=== PATIENT | female | born 1955 | race Caucasian/White ===

== ENCOUNTER 2017-07-19 19:56 | Emergency (ER) | payer OTHER, SELFPAY | END 2017-07-20 00:59 | disposition home or self-care (01) | PROVIDERS: Emergency Provider Emergency Medicine; PCP Family Medicine; Visit Provider Emergency Medicine | DX: R07.9 Chest pain, unspecified (principal) | CPT/HCPCS: 71010; 71045; 80053; 84484; 85025; 93005; 93010; 99058; 99285 ==

== ENCOUNTER → 2017-10-04 21:03 | Outpatient (CLI) | payer OTHER, SELFPAY ==
--- NOTE | 2017-10-04 21:07 | DI.RAD.S_ITS ---
PROCEDURE: XR CHEST 2V INDICATIONS: query aspiration pneumonia TECHNIQUE: 2 views of the chest were acquired. COMPARISON: None. FINDINGS: Surgical changes and devices: None. Lungs and pleura: No pleural effusions or pneumothorax. Lungs are clear. Mediastinum: Mediastinal contours are normal. Heart size is normal. Bones and chest wall: No suspicious bony abnormalities. Soft tissues appear unremarkable. IMPRESSION: No acute disease. Dictated by: Shaji Ram M.D. on 10/04/2017 at 21:46 Approved by: Shaji Ram M.D. on 10/04/2017 at 21:47
== END ==
PROVIDERS: Family Provider Family Medicine; PCP Family Medicine; Visit Provider Physician Assistant
DX: R06.89 Other abnormalities of breathing (principal)
CPT/HCPCS: 71046

== ENCOUNTER → 2017-10-18 09:49 | Outpatient (CLI) | payer OTHER, SELFPAY ==
[2017-10-18 12:24] LABS: BUN Creatinine Ratio 25.7 (6-22); Blood Urea Nitrogen 18 mg/dL (7-17); Estimated Glomerular Filt Rate > 60.0 mL/min (>60)
== END ==
PROVIDERS: PCP Family Medicine; Visit Provider Internal Medicine
DX: R93.5 Abnormal findings on diagnostic imaging of other abdominal regions, including retroperitoneum (principal); K76.0 Fatty (change of) liver, not elsewhere classified
CPT/HCPCS: 36415; 82565; 84520

== ENCOUNTER → 2017-10-21 06:32 | Outpatient (CLI) | payer OTHER, SELFPAY ==
--- NOTE | 2017-10-21 | DI.MRI.S_ITS ---
PROCEDURE: MR ABDOMEN WO/W CON INDICATIONS: FATTY LIVER TECHNIQUE: Coronal HASTE, axial 2D FLASH in- and yiz-fo-rzvrs; axial breath-hold T2 FSE. Dynamic axial VIBE during the administration of contrast; post-contrast coronal VIBE or 2D FLASH with fat saturation from the hepatic dome to the iliac crests. Optional diffusion weighted imaging and ADC may be performed. COMPARISON: [facility], US, ABDOMEN COMPLETE, 07/03/2016, 7:14. [facility], CT, ABDOMEN/PELVIS WITH CONTRAST, 07/17/2017, 11:10. FINDINGS: Image quality: Excellent. Lung bases: No basal pleural effusions. Heart size is normal. Solid organs: Liver is normal in size with fatty infiltration. Multiple hepatic cysts are identified in the left and right lobes. In the anterolateral dome of the liver, corresponding to prior CT findings is a 1 cm sized area of enhancement with central low signal that progressively enhances, nearly filling in on delayed imaging. A similar small focus of progressive enhancement is present in the lateral aspect of the right lobe of liver, again corresponding to CT findings. A third area of similar findings as present in the dome of the liver court officer medially, just anterior to the inferior vena cava. None of the lesions show evidence of washout. Gallbladder appears normal. Biliary system is non dilated. Pancreas is normal in morphology. Spleen is normal in size and enhancement. No adrenal nodules. Both kidneys demonstrate normal size and enhancement, without hydronephrosis. Nodes and vessels: No retroperitoneal or mesenteric adenopathy by size criteria. Aorta and inferior vena cava are normal in size. Bowel and peritoneum: Unenhanced bowel loops are normal in caliber. No free fluid. Bones and soft tissues: No ventral hernias. Bone marrow is normal in overall signal. IMPRESSION: 1. Fatty infiltration of the liver. Multiple hepatic cysts redemonstrated. 2. 3 areas of abnormal enhancement seen in the periphery of the liver with characteristics most consistent with cavernous hemangiomas. No washout identified. Focused hepatic ultrasound recommended to determine if these are visible although not seen on previous abdomen ultrasound. If not, a one year followup CT abdomen with liver protocol is recommended. Dictated by: Art Howell M.D. on 10/21/2017 at 16:21 Approved by: Art Howell M.D. on 10/21/2017 at 16:40
== END ==
PROVIDERS: Family Provider Family Medicine; PCP Family Medicine; Visit Provider Surgery
DX: K76.0 Fatty (change of) liver, not elsewhere classified (principal); K76.89 Other specified diseases of liver
CPT/HCPCS: 74183; A9579

== ENCOUNTER → 2017-12-09 14:11 | Outpatient (CLI) | payer OTHER, SELFPAY ==
--- NOTE | 2017-12-09 | DI.MG.S_ITS ---
BILATERAL DIGITAL SCREENING MAMMOGRAM 3D/2D WITH CAD: 12/09/2017 CLINICAL: Routine screening. Comparison is made to exams dated: 11/01/2016 mammogram, 10/04/2015 mammogram, and 10/28/2014 mammogram - [facility]. There are scattered fibroglandular elements in both breasts. Current study was also evaluated with a Computer Aided Detection (CAD) system. No significant masses, calcifications, or other findings are seen in either breast. There has been no significant interval change. IMPRESSION: NEGATIVE There is no mammographic evidence of malignancy. A 1 year screening mammogram is recommended. This exam was interpreted at Station ID: [id number]. NOTE: For mammograms, a report in lay terms will be sent to the patient. Approximately 15% of breast malignancies will not be visualized mammographically. In the management of a palpable breast mass, a negative mammogram must not discourage biopsy of a clinically suspicious lesion. Electronically Signed By: Cary reyes/anthony:12/09/2017 16:36:32 letter sent: Normal Exam ACR BI-RADS Category 1: Negative [id number]
== END ==
PROVIDERS: Family Provider Family Medicine; PCP Family Medicine; Visit Provider Family Medicine
DX: Z12.31 Encounter for screening mammogram for malignant neoplasm of breast (principal)
CPT/HCPCS: 77063; 77067

== ENCOUNTER → 2018-03-21 06:57 | Outpatient (CLI) | payer OTHER, SELFPAY ==
[2018-03-21 08:01] LABS: Alanine Aminotransferase 53 IU/L (9-52); Albumin 4.4 g/dL (3.5-5.0); Albumin Globulin Ratio 1.4 (1.0-2.8); Alkaline Phosphatase 91 U/L (38-126); Aspartate Aminotransferase 29 IU/L (14-36); Bilirubin Total 0.7 mg/dL (0.2-1.3); Blood Urea Nitrogen 16 mg/dL (7-17); Calcium 9.2 mg/dL (8.4-10.2); Carbon Dioxide 29 mmol/L (22-32); Chloride 105 mmol/L (98-107); Cholesterol 206 mg/dL (140-199); Estimated Glomerular Filt Rate > 60.0 mL/min (>60); Globulin 3.1 g/dL (1.7-4.1); Glucose 107 mg/dL (80-110); HDL Cholesterol 36 mg/dL (40-60); HEMOLYSIS < 15 (0-50); LDL Cholesterol Calculated 133 mg/dL (<100); Potassium 4.3 mmol/L (3.4-5.1); Sodium 144 mmol/L (137-145); Total Protein 7.5 g/dL (6.3-8.2); Triglycerides 185 mg/dL (35-150)
[2018-03-21 08:42] LABS: Hemoglobin A1C% w Est Avg Glu 5.6 % (4.0-6.0)
== END ==
PROVIDERS: PCP Family Medicine; Visit Provider Family Medicine
DX: R73.9 Hyperglycemia, unspecified (principal); Z51.81 Encounter for therapeutic drug level monitoring
CPT/HCPCS: 36415; 80053; 80061; 83036

== ENCOUNTER 2018-04-14 22:42 | Emergency (ER) | payer OTHER, SELFPAY ==
[2018-04-14 22:52] VITALS: BP 186/106; PULSE 81; RESP 16; TEMP 36.2; O2SAT 98; BMI 28.1
--- NOTE | 2018-04-14 22:57 | DI.RAD.S_ITS ---
PROCEDURE: XR CHEST 1V INDICATIONS: sound in her chest thinks she aspirated gastric secretions TECHNIQUE: One view of the chest was acquired. COMPARISON: [facility], MATEUSZ, XR CHEST 2V, 10/04/2017, 20:56. [facility], MATEUSZ, CHEST 1 VIEW, 07/19/2017, 20:17. FINDINGS: Surgical changes and devices: None. Lungs and pleura: No pleural effusions or pneumothorax. Lungs are clear. Mediastinum: Mediastinal contours appear normal. Heart size is normal. Bones and chest wall: No suspicious bony lesions. Overlying soft tissues appear unremarkable. IMPRESSION: Normal for age, source of current aspiration symptoms is not seen. Dictated by: Elijah Davis M.D. on 04/15/2018 at 8:35 Approved by: Elijah Davis M.D. on 04/15/2018 at 8:35
--- NOTE | 2018-04-14 23:57 | PC.NURSE ---
reports Hx GERD. states two nights ago she awoke to a reflux choke and believes she aspirated. She coughed initially for about an hour and is not left with an expiratory wheeze that is only audible to this nurse with stethascope when the pt forcefully exhales. she also reports she has had a metallic taste in her mouth. denies all other symptoms.
--- NOTE | 2018-04-15 00:09 | ED_ITS ---
HPI - URI/Sore Throat General Chief Complaint: Upper Respiratory Symptoms Stated Complaint: ACID REFLUX WENT UP FEELS THAT WENT TO LUNGS Time Seen by Provider: 04/14/18 23:54 Source: patient Mode of arrival: ambulatory Limitations: no limitations History of Present Illness HPI Narrative: Patient is a 62-year-old female who states that a couple days ago at night she felt like she had a reflux episode that caused her to potentially aspirate gastric contents. She states that she has had reflux in the past. Has had an upper GI in the past and told her that she had esophagitis. She is on Prilosec and states that she occasionally takes his medication however was taking it for the several days prior to the event which led her here to the emergency department. She denies any fevers. She states that she feels like that she occasionally wheezes. Also has a metallic taste in the back of her mouth. Related Data Home Medications Medication Instructions Recorded Confirmed omeprazole magnesium [Prilosec OTC] 20 mg PO QDAY #0 06/28/17 03/03/18 [id number]-vaickrrn See Label Instructions PO Q6H PRN 08/06/1706/16 50 mg-325 mg-40 mg tablet tab Previous Rx's Medication Instructions Recorded sucralfate 10 ml PO QID PRN #420 ml 04/15/18 Allergies Allergy/AdvReac Type Severity Reaction Status Date / Time Penicillins [PENICILLINS] Allergy Mild ITCHY Verified 04/05/18 14:18 codeine [CODEINE] Allergy Unknown Verified 04/05/18 14:18 meperidine [MEPERIDINE] Allergy Unknown VOMITING Verified 04/05/18 14:18 Review of Systems Constitutional Denies fever(s) Cardiovascular Denies chest pain and Denies dyspnea Respiratory Reports cough, Denies dyspnea and Reports wheezing Gastrointestinal Gastrointestinal: Denies change in stool character Comments: Reflux Integumentary/Breasts Denies rash Allergic/Immunologic Reports wheezing [facility] Medical History Gastroesophageal reflux disease (Acute) Surgical History History of bilateral salpingo-oophorectomy (BSO) History of esophagogastroduodenoscopy (EGD) (01/22/07) Status post endometrial ablation Family History Child Brain tumor Social History Smoking Status: Never smoker Exam Initial Vital Signs Initial Vital Signs: Vital Signs Temperature 97.2 F L 04/14/18 22:52 Pulse Rate 81 04/14/18 22:52 Respiratory Rate 16 04/14/18 22:52 Blood Pressure 186/106 H 04/14/18 22:52 Pulse Oximetry 98 04/14/18 22:52 Const General: cooperative, healthy appearing, comfortable, well developed, well groomed and No acute distress Orientation: alert, awake and oriented x3 Resp Effort & Inspection: normal respiratory effort Auscultation: clear to auscultation bilaterally Cardio Rate: regular rate Rhythm: regular rhythm Skin Rashes: no rashes Neuro General: alert, awake and oriented x3 Extrem General: normal to inspection and capillary refill normal Psych Appearance: grossly normal and well kempt Course Orders Ordered: ED Orders 04/14/18 22:55 EKG-12 Lead Stat 04/14/18 22:57 XR chest 1V Stat Vital Signs - 8 hr 04/14/18 22:52 04/15/18 00:26 Temperature 97.2 F L Pulse Rate 81 84 Respiratory Rate 16 14 Blood Pressure 186/106 H 138/82 Pulse Oximetry 98 99 MDM - URI/Sore Throat Imaging Data Chest x-ray: Attestation: I personally reviewed and interpreted this imaging study as follows: My impression: No acute abnormalities No focal consolidations Normal size heart ECG Data Attestation: I personally reviewed and interpreted this ECG as follows: Prior ECG tracings: not available for review Interpretation: Sinus rhythm Ventricular rate 85 Left axis deviation LVH Normal QRS No ST T wave changes [facility] Narrative Medical decision making narrative: Patient's history and physical exam does sound like that a couple days ago she had a episode of reflux and potentially aspirated a small amount of gastric contents. She is not in any respiratory distress. Chest x-ray shows no focal consolidations. No indication for antibiotics. She is currently taking Prilosec. Informed her that she should continue to take this. Offered her a GI cocktail here in the emergency department however she declined this. Will send home with prescription for Carafate. I do suspect that she has quite a bit of inflammation and irritation secondary to that episode. Will hold on further workup for now. She was given return precautions. She expressed understanding and agreement with plan. Discharge Plan Departure Patient Disposition: Home Clinical Impression: Gastroesophageal reflux disease Discharge Date/Time: 04/15/18 00:30 Interventions: ED Discharge Assessment Last Done: 04/15/18 00:26 Instructions: Gastroesophageal Reflux Disease (Alternative Therapy), DI for Gastroesophageal Reflux Disease (GERD) Activity Restrictions/Additional Instructions: I recommend you take the Carafate at night like we discussed. Call your primary care doctor for follow-up. Return to the emergency department for any new or worsening symptoms Prescriptions: New sucralfate 100 mg/mL suspension 10 ml PO QID PRN (Reason: reflux) Qty: 420 RF: 0 No Action tvdkganzpt-vdhldrjbgvvrg-gjwr 50-325-40 mg tablet See Patient Comments PO Q6H PRNRF: 0 omeprazole magnesium [Prilosec OTC] 20 MG tablet,delayed release (DR/EC) 20 mg PO QDAY Qty: 0 RF: 0
[2018-04-15 00:26] VITALS: BP 138/82; PULSE 84; RESP 14; O2SAT 99
== END 2018-04-15 00:30 | disposition home or self-care (01) ==
PROVIDERS: Emergency Provider Emergency Medicine; Family Provider Family Medicine; PCP Family Medicine
DX: K21.9 Gastro-esophageal reflux disease without esophagitis (principal)
CPT/HCPCS: 71045; 93005; 93010; 99282; 99284

== ENCOUNTER → 2018-05-21 14:45 | Outpatient (CLI) | payer OTHER, SELFPAY | PROVIDERS: Family Provider Family Medicine; PCP Family Medicine; Visit Provider Physician Assistant | DX: L02.91 Cutaneous abscess, unspecified (principal) | CPT/HCPCS: 87070; 87075; 87205 ==

== ENCOUNTER 2018-12-24 12:07 | Emergency (ER) | payer OTHER, MEDICAID, SELFPAY ==
[2018-12-24 12:28] VITALS: BP 158/92; PULSE 84; RESP 18; TEMP 36.9; O2SAT 97; BMI 28.1
--- NOTE | 2018-12-24 12:43 | ED_ITS ---
HPI - URI/Sore Throat <MAMIE Aguillon - Last Filed: 12/24/18 13:26> General Chief Complaint: Upper Respiratory Symptoms Stated Complaint: thinks she has strep Time Seen by Provider: 12/24/18 12:33 Source: patient Mode of arrival: Ambulatory Limitations: no limitations History of Present Illness HPI Narrative: The patient is a [age] year female nonsmoker with history of migraines who presents for chief complaint of sore throat x3 days. She states that her temperature is usually ninety seven degrees, so her temperature at ninety eight degrees today as a fever. She complains of slight nausea yesterday. Denies any active abdominal pain that is irregular for her, vomiting diarrhea or active nausea. She has not taken anything at home to feel better. She denies any cough or congestion. She states she does not feel as though she has cold symptoms. She is concerned that she might have strep as she has company coming in. She has not followed up with primary care provider. Related Data Home Medications Medication Instructions Recorded Confirmed omeprazole magnesium [Prilosec OTC] 20 mg PO QDAY #0 06/28/17 09/05/18 [id number] See Rx Instructions PO Q6H PRN tab 08/06/17 09/05/18 50 mg-325 mg-40 mg tablet Allergies Allergy/AdvReac Type Severity Reaction Status Date / Time Penicillins [PENICILLINS] Allergy Mild ITCHY Verified 12/24/18 12:28 sulfamethoxazole Allergy Mild itchy all Verified 12/24/18 12:28 [From Bactrim] over under skin trimethoprim [From Bactrim] Allergy Mild itchy all Verified 12/24/18 12:28 over under skin codeine [CODEINE] Allergy Unknown Verified 12/24/18 12:28 meperidine [MEPERIDINE] Allergy Unknown VOMITING Verified 12/24/18 12:28 Review of Systems <MAMIE Aguillon - Last Filed: 12/24/18 13:26> Review of Systems Narrative: GENERAL: Denies chills, fatigue, malaise, fever, sweats. HEENT: See HPI RESPIRATORY: Denies dyspnea, cough, wheezing, hemoptysis, sputum. CARDIOVASCULAR: Denies chest pain, palpitations, orthopnea, edema, GASTROINTESTINAL see HPI : Denies dysuria, frequency, incontinence, hematuria, urinary retention. MUSCULOSKELETAL: denies weakness, joint pain, or bony pain SKIN: Denies rash, skin lesions, or other NEUROLOGIC: Denies weakness, headache, numbness, change in speech, confusion, seizures, incoordination. PSYCHIATRIC: No concerning psychosocial issues. 12 point review of systems is negative except for those stated above PFSH <MAMIE Aguillon - Last Filed: 12/24/18 13:26> Medical History Gastroesophageal reflux disease (Acute) Surgical History History of bilateral salpingo-oophorectomy (BSO) History of esophagogastroduodenoscopy (EGD) (01/22/07) Status post endometrial ablation Family History Child Brain tumor Social History Smoking Status: Never smoker Family History Child Brain tumor Social History Smoking Status: Never smoker Exam <MAMIE Aguillon - Last Filed: 12/24/18 13:26> Narrative Exam Narrative: GENERAL: This is a well-nourished, well-developed patient, in no acute distress HEAD: Atraumatic. Normocephalic. No temporal or scalp tenderness. EYES: Pupils equal round and reactive. Extraocular motions intact. No scleral icterus. No injection or drainage. ENT: Nose without bleeding, purulent drainage or septal hematoma. Throat without erythema, tonsillar hypertrophy or exudate. Uvula midline. Airway patent. Bilateral TMs pearly barragan., sounding noted. NECK: Trachea midline. No JVD or lymphadenopathy. Supple, nontender, no meninge al signs. CARDIOVASCULAR: Regular rate and rhythm without murmurs, gallops, or rubs. RESPIRATORY: Clear to auscultation. Breath sounds equal bilaterally. No wheezes, rales, or rhonchi. No cough. No increased respiratory effort. No accessory muscle use. No stridor. GASTROINTESTINAL: Abdomen soft, non-tender, nondistended. No hepato- splenomegaly, or palpable masses. No guarding. EXTREMITIES: No clubbing, cyanosis, or edema. No joint tenderness, effusion, or edema noted. BACK: Nontender without deformity or crepitance. No flank tenderness. NEURO: AOx3. SKIN: No rash or erythema. Initial Vital Signs Initial Vital Signs: Vital Signs Temperature 98.4 F 12/24/18 12:28 Pulse Rate 84 12/24/18 12:28 Respiratory Rate 18 12/24/18 12:28 Blood Pressure 158/92 H 12/24/18 12:28 Pulse Oximetry 97 12/24/18 12:28 <Kaylin Arredondo DO - Last Filed: 12/27/18 07:08> Initial Vital Signs Initial Vital Signs: Vital Signs Temperature 98.4 F 12/24/18 12:28 Pulse Rate 84 12/24/18 12:28 Respiratory Rate 18 12/24/18 12:28 Blood Pressure 158/92 H 12/24/18 12:28 Pulse Oximetry 97 12/24/18 12:28 Course <MAMIE Aguillon - Last Filed: 12/24/18 13:26> Vital Signs Vital signs: Vital Signs - 8 hr 12/24/18 12:28 Temperature 98.4 F Pulse Rate 84 Respiratory Rate 18 Blood Pressure 158/92 H Pulse Oximetry 97 <Kaylin Arredondo DO - Last Filed: 12/27/18 07:08> Vital Signs Vital signs: Vital Signs - 8 hr 12/24/18 12:28 Temperature 98.4 F Pulse Rate 84 Respiratory Rate 18 Blood Pressure 158/92 H Pulse Oximetry 97 MDM - URI/Sore Throat <MAMIE Aguillon - Last Filed: 12/24/18 13:26> Lab Data Labs: Point of Care Testing Rapid Strep A Negative MDM Narrative Medical decision making narrative: The patient is a 63-year-old female who presents with a chief complaint of sore throat for 3 days. She is concerned she has strep, rapid strep came back negative. She has no acute findings on exam. She is hemodynamically stable, afebrile. Discussed at length continued ov vy-qhu-ninvhzu measures. Encouraged follow-up with PCP. Discussed going back to the ER for any acute concerns such as chest pain, shortness of breath concern of heart attack or stroke. The patient is in accordance with plan of care, return precautions as well as follow-up care. <Kaylin Arredondo DO - Last Filed: 12/27/18 07:08> Lab Data Labs: Point of Care Testing Rapid Strep A Negative Discharge Plan Departure Patient Disposition: Home Clinical Impression: Pharyngitis Qualifiers: Pharyngitis/tonsillitis etiology: unspecified etiology Qualified Code(s): J02.9 - Acute pharyngitis, unspecified Upper respiratory infection Qualifiers: URI type: unspecified viral URI Qualified Code(s): J06.9 - Acute upper respiratory infection, unspecified Discharge Date/Time: 12/24/18 13:16 Instructions: DI for Viral Upper Respiratory Infection -- Adult, DI for Viral Pharyngitis Activity Restrictions/Additional Instructions: Your strep test came back negative in the emergency department. Please use mktv-sds-qeajnmg remedies as needed and able. Please follow up with primary care provider. Please come back to the emergency department for any acute concerns such as chest pain, shortness of breath, concern of heart attack or stroke etc Prescriptions: No Action tddrzlcbkv-sszmfviwptmlb-fqil 50-325-40 mg tablet See Rx Instructions PO Q6H PRNRF: 0 omeprazole magnesium [Prilosec OTC] 20 MG tablet,delayed release (DR/EC) 20 mg PO QDAY Qty: 0 RF: 0 Referrals: Helen Shearer DO [Primary Care Provider] -
== END 2018-12-24 13:16 | disposition home or self-care (01) ==
PROVIDERS: Emergency Provider Nurse Practitioner Family; Family Provider Family Medicine; PCP Family Medicine
DX: J02.9 Acute pharyngitis, unspecified (principal); J06.9 Acute upper respiratory infection, unspecified
CPT/HCPCS: 87880; 99282

== ENCOUNTER → 2019-02-20 11:00 | Outpatient (CLI) | payer OTHER, MEDICAID, SELFPAY ==
[2019-02-20 13:12] LABS: BUN Creatinine Ratio 27.1 (6-22); Blood Urea Nitrogen 19 mg/dL (7-17); Estimated Glomerular Filt Rate > 60.0 mL/min (>60)
== END ==
PROVIDERS: Family Provider Family Medicine; PCP Family Medicine; Visit Provider Family Medicine
DX: D18.03 Hemangioma of intra-abdominal structures (principal)
CPT/HCPCS: 36415; 82565; 84520

== ENCOUNTER → 2019-04-10 12:13 | Outpatient (CLI) | payer MEDICARE, OTHER, MEDICAID, SELFPAY ==
--- NOTE | 2019-04-10 12:18 | DI.RAD.S_ITS ---
PROCEDURE: XR HAND RT MIN 3V INDICATIONS: metatarsal and 4th finger pain TECHNIQUE: 3 views of the hand(s) acquired. COMPARISON: None. FINDINGS: Bones: No fractures or dislocations. Carpal bones are normally aligned. No suspicious bony lesions. Soft tissues: No suspicious soft tissue calcifications. IMPRESSION: No right hip fracture or dislocation. No gross bony erosive changes are seen in the metacarpal bones and phalanges. Dictated by: Fran Leger M.D. on 04/10/2019 at 12:58 Approved by: Fran Leger M.D. on 04/10/2019 at 13:07
== END ==
PROVIDERS: Family Provider Family Medicine; PCP Family Medicine; Visit Provider Nurse Practitioner
DX: M79.641 Pain in right hand (principal)
CPT/HCPCS: 73130

== ENCOUNTER 2019-07-29 13:39 | Emergency (ER) | payer MEDICARE, SELFPAY ==
[2019-07-29 13:53] VITALS: BP 194/103; PULSE 81; RESP 18; TEMP 37.1; O2SAT 98
[2019-07-29 14:00] VITALS: BP 177/95; PULSE 77; RESP 19; O2SAT 97
[2019-07-29 14:06] LABS: Add Manual Diff / Slide Review NO; Basophils Absolute Auto 100 /uL (0-100); Basophils Percent Auto 1.1 % (0-2); Eosinophils Absolute Auto 100 /uL (0-450); Hemoglobin 14.1 g/dL (12.0-16.0); Lymphocytes Absolute Auto 2000 /uL (1100-4500); Lymphocytes Percent Auto 29.5 % (25-40); Mean Corpuscular HGB Conc 34.4 % (30-36); Mean Corpuscular Hemoglobin 30.4 PG (26-34); Mean Corpuscular Volume 88.3 fL (80-100); Monocytes Absolute Auto 300 /uL (0-900); Monocytes Percent Auto 4.7 % (3-14); Neutrophils Absolute Auto 4200 /uL (1500-7000); Neutrophils Percent Auto 62.7 % (50-75); Platelet Count 264 X10^3/uL (150-400); Red Blood Cell Count 4.64 X10^6/uL (4.0-5.2); Red Cell Distribution Width 13.4 % (11.6-14.8); White Blood Cell Count 6.7 X10^3/uL (4.5-11.0)
[2019-07-29 14:21] LABS: Alanine Aminotransferase 45 IU/L (<35); Albumin 4.7 g/dL (3.5-5.0); Albumin Globulin Ratio 1.4 (1.0-2.8); Alkaline Phosphatase 99 U/L (38-126); Aspartate Aminotransferase 43 IU/L (14-36); BUN Creatinine Ratio 20.9 (6-22); Bilirubin Total 0.7 mg/dL (0.2-1.3); Blood Urea Nitrogen 14 mg/dL (7-17); Calcium 9.3 mg/dL (8.4-10.2); Carbon Dioxide 26 mmol/L (22-32); Chloride 106 mmol/L (98-107); Estimated Glomerular Filt Rate > 60.0 mL/min (>60); Globulin 3.4 g/dL (1.7-4.1); Glucose 122 mg/dL (80-110); HEMOLYSIS 30 (0-50); Lipase 95 U/L (23-300); Sodium 141 mmol/L (137-145); Total Protein 8.1 g/dL (6.3-8.2)
--- NOTE | 2019-07-29 14:23 | DI.US.S_ITS ---
PROCEDURE: US ABDOMEN LIMITED INDICATIONS: RUQ PAIN TECHNIQUE: Real-time focused scanning was performed of the abdomen, with image documentation. COMPARISON: [facility], CT, ABDOMEN/PELVIS WITH CONTRAST, 07/17/2017, 11:10. FINDINGS: The liver is normal in size and demonstrates moderately increased echogenicity when compared to the right kidney, which does result in difficulty evaluating the liver for deep liver lesions. A mildly complex hepatic cyst is again evident that measures 6.8 x 6.0 x 8.4 cm. No solid hepatic lesions are appreciated. Previously noted areas of enhancement within the liver are not apparent on ultrasound imaging, which may be related to increased echogenicity of the liver or differences in modality/imaging. The gallbladder is within normal limits without evidence of gallbladder wall inflammation or cholelithiasis. There is no intrahepatic or extrahepatic biliary dilatation. The common bile duct measures 5 mm in diameter. The imaged portions of the pancreas and right kidney are within normal limits. There is no hydronephrosis. No free fluid is identified. IMPRESSION: 1. No evidence of cholelithiasis or acute cholecystitis. 2. Hepatic steatosis. 3. Mildly complex moderate-sized right hepatic cyst, similar to the prior study. 4. Previously noted areas of the CT enhancement within the liver are not apparent on this exam. A dedicated MRI with contrast is recommended on a nonemergent basis to evaluate for interval change since 2018. Dictated by: Alex Hernandez M.D. on 07/29/2019 at 14:50 Approved by: Alex Hernandez M.D. on 07/29/2019 at 14:56
[2019-07-29 14:34] VITALS: BP 163/85; PULSE 76; RESP 17; O2SAT 99
[2019-07-29] MEDS: IBUPROFEN 400 MG TABLET PO (14:46)
[2019-07-29 15:00] VITALS: BP 171/80; PULSE 64; RESP 17; O2SAT 98
--- NOTE | 2019-07-29 15:02 | ED_ITS ---
HPI - Abdominal Pain <PRANAY Calle - Last Filed: 07/29/19 17:45> General Chief Complaint: Abdominal Pain Stated Complaint: Abd pain x 5 days Time Seen by Provider: 07/29/19 13:41 Source: patient Mode of arrival: Ambulatory Limitations: no limitations History of Present Illness HPI narrative: Is a 64 year female, nonsmoker, who presents to ED with chief complain of right upper abdominal pain for last couple of years which has been increasing severity for last 5 days. Patient denies nausea, vomiting, fever or chills. Patient rates pain as 7/10 and improves with rest and worsened with palpation. Patient denies urinary symptoms but reports occasional right flank pain radiating right upper abdomen. Last bowel movement was 2 hours ago which was normal for her without blood. Patient reports having a good appetite. Patient has history of liver hemangioma and cysts per imaging test about 2 years ago. Patient states she has non alcoholic fatty liver disease. She lives very active life with walking 3 times a week and she is a instructor for martial arts. Patient does report she has been moving furniture at home. Patient denies chest pain, breathing difficulty or feeling dizzy. She takes Prilosec for acid reflux and Advil as needed for discomfort. Patient has history of appendectomy at age 4 and right ovarian cyst surgery. Related Data Home Medications Medication Instructions Recorded Confirmed Prilosec OTC 20 mg PO QDAY #0 06/28/17 07/29/19 [id number] See Rx Instructions PO Q6H PRN tab 08/06/17 07/29/19 50 mg-325 mg-40 mg tablet ibuprofen 200 mg tablet 200 mg PO Q6H PRN 02/06/19 07/29/19 Allergies Allergy/AdvReac Type Severity Reaction Status Date / Time Penicillins [PENICILLINS] Allergy Mild ITCHY Verified 07/29/19 14:03 sulfamethoxazole Allergy Mild itchy all Verified 07/29/19 14:03 [From Bactrim] over under skin trimethoprim [From Bactrim] Allergy Mild itchy all Verified 07/29/19 14:03 over under skin codeine [CODEINE] Allergy Unknown Verified 07/29/19 14:03 meperidine [MEPERIDINE] Allergy Unknown VOMITING Verified 07/29/19 14:03 Review of Systems <PRANAY Calle - Last Filed: 07/29/19 17:45> Review of Systems Narrative: General: Denies fever, chills, fatigue, malaise, sweats. HEENT: Denies sinus pain, ear pain, sore throat, difficulty swallowing, dizziness. Respiratory: Denies dyspnea, cough, wheezing, hemoptysis, sputum. Cardiovascular: Denies chest pain, palpitations, orthopnea, edema. Gastrointestinal: See HPI : Denies dysuria, frequency, incontinence, hematuria, urinary retention. Musculoskeletal: Denies weakness, joint pain or bony pain, (+) right mid back pain. Skin: Denies rash, skin lesions, or other. Neurologic: Denies weakness, headache, numbness, change in speech, confusion, seizures, incoordination. Psychiatric: No concerning psychosocial issues. 12-point review of systems is negative except for those stated above. Patient History <PRANAY Calle - Last Filed: 07/29/19 17:45> Medical History Cervical somatic dysfunction (Acute) Cervicalgia (Acute) Cranial somatic dysfunction (Acute) Eczema (Acute) Gastroesophageal reflux disease (Acute) Hip pain, bilateral (Acute) History of herpes genitalis (Acute) IT band syndrome (Acute) Itch of eye, right (Acute) Low back pain (Acute) Lump of skin of back (Acute) Right-sided abdominal pain of unknown cause (Acute) Segmental and somatic dysfunction of pelvic region (Acute) Somatic dysfunction of abdominal region (Acute) Somatic dysfunction of left lower extremity (Acute) Somatic dysfunction of sacroiliac region (Acute) Surgical History History of bilateral salpingo-oophorectomy (BSO) History of esophagogastroduodenoscopy (EGD) (01/22/07) Status post endometrial ablation Family History Child Brain tumor Social History Smoking Status: Never smoker Smoking Status: Never smoker alcohol intake frequency: 0-2 drinks per day Substance Use Type: does not use Exam <Abelino PRANAY Saha - Last Filed: 07/29/19 17:45> Narrative Exam Narrative: GEN: Alert, oriented x 3, well appearing and nourished, and in no acute distress. Head: Normal cephalic, atraumatic. No scalp or temporal tenderness, palpable mass or rash. EYES: Pupils are equal, round, and reactive to light and accommodation. Extraocular muscles are intact bilaterally. There is no subconjunctival h emorrhage, exudate and sclera non-icteric. ENT: Hearing grossly intact. Nose without bleeding, purulent discharge. Mucous membrane moist, no mucosal lesion. Throat without erythema, tonsillar hype rtrophy or exudate. Uvula in midline, airway patent. Neck: Trachea in midline. No JVD, non-tender without lymphadenopathy. No masses or thyroid megaly. Supple, non-tender and no meningeal signs. CARDIAC: Normal regular rate and rhythm without murmurs, gallops, or rubs. No chest wall tenderness. No peripheral edema, cyanosis or pallor. Capillary refill is less than 2 seconds. RESPIRATORY: Lungs are clear to auscultate bilaterally. No cough, wheezes, rales, or rhonchi. No stridor, respiratory distress, increase work of breathing, or accessary muscle used. ABD: Abdomen soft and non-distended. Mild right upper quadrant pain to palpate. No guarding or rebound tenderness to palpate. Bowel sounds are normal in all 4 quadrants. There is no palpable masses or organomegaly. EXT: Full painless ROM of all extremities with no loss of sensation, strength, effusion or edema. SKIN: Warm, dry, normal color for patient. No erythema, lesions or rash over visible areas. BACK: Nontender without deformity or crepitance. No flank tenderness. NEUROLOGICAL: Alert and oriented to place, time and person. Sensation and motor function intact bilaterally. No facial droops, dysphasia. PSYCHIATRIC: Good judgement and reason, without hallucinations, abnormal affect or abnormal behaviors during the examination. Initial Vital Signs Initial Vital Signs: Vital Signs Temperature 98.7 F 07/29/19 13:53 Pulse Rate 81 07/29/19 13:53 Respiratory Rate 18 07/29/19 13:53 Blood Pressure 194/103 H 07/29/19 13:53 Pulse Oximetry 98 07/29/19 13:53 <West De Leon MD - Last Filed: 07/30/19 07:45> Initial Vital Signs Initial Vital Signs: Vital Signs Temperature 98.7 F 07/29/19 13:53 Pulse Rate 81 07/29/19 13:53 Respiratory Rate 18 07/29/19 13:53 Blood Pressure 194/103 H 07/29/19 13:53 Pulse Oximetry 98 07/29/19 13:53 Scores <PRANAY Calle - Last Filed: 07/29/19 17:45> GCS [place] coma scale eye opening: Spontaneous Twila coma scale verbal response: Orientated [place] coma scale motor response: Obey commands [place] coma scale total score: 15 Course <PRANAY Calle - Last Filed: 07/29/19 17:45> Orders Ordered: Discontinued Medications Ibuprofen (Advil) 400 mg PO NOW ONE Stop: 07/29/19 14:33 Last Admin: 07/29/19 14:46 Dose: 400 mg Documented by: TARIQ Ketorolac Tromethamine (Toradol) 15 mg IV NOW ONE Stop: 07/29/19 13:57 Last Admin: 07/29/19 14:32 Dose: Not Given Documented by: TARIQ Vital Signs Vital signs: Vital Signs - 8 hr 07/29/19 13:53 07/29/19 14:00 07/29/19 14:34 Temperature 98.7 F Pulse Rate 81 77 76 Respiratory Rate 18 19 17 Blood Pressure 194/103 H Blood Pressure [Left Arm] 177/95 H 163/85 H Pulse Oximetry 98 97 99 07/29/19 15:00 07/29/19 16:01 07/29/19 16:57 Temperature Pulse Rate 64 78 80 Respiratory Rate 17 16 18 Blood Pressure Blood Pressure [Left Arm] 171/80 H 166/79 H 160/71 H Pulse Oximetry 98 99 97 <West De Leon MD - Last Filed: 07/30/19 07:45> Orders Ordered: Discontinued Medications Ibuprofen (Advil) 400 mg PO NOW ONE Stop: 07/29/19 14:33 Last Admin: 07/29/19 14:46 Dose: 400 mg Documented by: TARIQ Ketorolac Tromethamine (Toradol) 15 mg IV NOW ONE Stop: 07/29/19 13:57 Last Admin: 07/29/19 14:32 Dose: Not Given Documented by: TARIQ Vital Signs Vital signs: Vital Signs - 8 hr 07/29/19 13:53 07/29/19 14:00 07/29/19 14:34 Temperature 98.7 F Pulse Rate 81 77 76 Respiratory Rate 18 19 17 Blood Pressure 194/103 H Blood Pressure [Left Arm] 177/95 H 163/85 H Pulse Oximetry 98 97 99 07/29/19 15:00 07/29/19 16:01 07/29/19 16:57 Temperature Pulse Rate 64 78 80 Respiratory Rate 17 16 18 Blood Pressure Blood Pressure [Left Arm] 171/80 H 166/79 H 160/71 H Pulse Oximetry 98 99 97 MDM - Abdominal Pain <Abelino PRANAY Saha - Last Filed: 07/29/19 17:45> Differential Diagnosis Differential diagnosis: Likely abdominal pain, calculus of kidney, pancreatitis and other (Cholecystitis, kidney infection) Medical Records Attestation: I reviewed the patient's medical records. Lab Data Attestation: I reviewed the patient's lab results. Result diagrams: 07/29/19 14:00 07/29/19 14:00 Labs: Lab Results 07/29/19 07/29/19 07/29/19 Range/Units 14:00 14:00 16:15 WBC 6.7 (4.5-11.0) X10^3/uL RBC 4.64 (4.0-5.2) X10^6/uL Hgb 14.1 (12.0-16.0) g/dL Hct 41.0 (36-46) % MCV 88.3 (80-100) fL MCH 30.4 (26-34) PG MCHC 34.4 (30-36) % RDW 13.4 (11.6-14.8) % Plt Count 264 (150-400) X10^3/uL Neut % (Auto) 62.7 (50-75) % Lymph % (Auto) 29.5 (25-40) % [place] % (Auto) 4.7 (3-14) % Eos % (Auto) 2.0 (2-4) % Baso % (Auto) 1.1 (0-2) % Neut # (Auto) 4200 (5065-2572) /uL Lymph # (Auto) 2000 (3496-3968) /uL [place] # (Auto) 300 (0-900) /uL Eos # (Auto) 100 (0-450) /uL Baso # (Auto) 100 (0-100) /uL Sodium 141 (137-145) mmol/L Potassium 4.0 (3.4-5.1) mmol/L Chloride 106 (98-107) mmol/L Carbon Dioxide 26 (22-32) mmol/L BUN 14 (7-17) mg/dL Creatinine 0.67 (0.52-1.04) mg/dL Estimated GFR > 60.0 (>60) mL/min BUN/Creatinine Ratio 20.9 (6-22) Glucose 122 H (80-110) mg/dL Calcium 9.3 (8.4-10.2) mg/dL Total Bilirubin 0.7 (0.2-1.3) mg/dL AST 43 H (14-36) IU/L ALT 45 H (<35) IU/L Alkaline Phosphatase 99 (38-126) U/L Total Protein 8.1 (6.3-8.2) g/dL Albumin 4.7 (3.5-5.0) g/dL Globulin 3.4 (1.7-4.1) g/dL Albumin/Globulin Ratio 1.4 (1.0-2.8) Lipase 95 (23-300) U/L Urine RBC None seen (0-5/HPF) Urine WBC 0-1/hpf (0-5/HPF) Ur Squamous Epith Cells 0-1 /hpf (0-5/HPF) Ur Transition Epith Cell 0-1/hpf (0-5/HPF) Ur Renal Epithelial Cell 0-1/hpf (0-1/HPF) Urine Bacteria None seen (None) Ur Culture Indicated? Cult not indicated Point of care testing: Urine Dip Bedside Urine Glucose Negative Bedside Urine Bilirubin - Negative Bedside Urine Ketone - Negative Urine Specific [place] 1.015 Bedside Urine Occult Blood - Negative Bedside Urine pH 7.0 Bedside Urine Protein - Negative Bedside Urine Urobilinogen - Negative Bedside Urine Nitrite - Negative Bedside Urine Leukocytes + 70 Esterase Imaging Data US - abdomen: Radiologist's Impression: [address] [address] Ultrasound Report Signed Patient: Trudi Contreras LMR#: [id number] : 5Acct:[id number] Age/Sex: 64 / FDate of Service: 07/29/19 Loc: ED Accession Number: [id number] Procedure: US abdomen limited Ordering Provider: Abelino Saha PROCEDURE: US ABDOMEN LIMITED INDICATIONS: RUQ PAIN TECHNIQUE: Real-time focused scanning was performed of the abdomen, with image documentation. COMPARISON: [facility], CT, ABDOMEN/PELVIS WITH CONTRAST, 07/17/2017, 11:10. FINDINGS: The liver is normal in size and demonstrates moderately increased echogenicity when compared to the right kidney, which does result in difficulty evaluating the liver for deep liver lesions. A mildly complex hepatic cyst is again evident that measures 6.8 x 6.0 x 8.4 cm. No solid hepatic lesions are appreciated. Previously noted areas of enhancement within the liver are not apparent on ultrasound imaging, which may be related to increased echogenicity of the liver or differences in modality/imaging. The gallbladder is within normal limits without evidence of gallbladder wall inflammation or cholelithiasis. There is no intrahepatic or extrahepatic biliary dilatation. The common bile duct measures 5 mm in diameter. The imaged portions of the pancreas and right kidney are within normal limits. There is no hydronephrosis. No free fluid is identified. IMPRESSION: 1. No evidence of cholelithiasis or acute cholecystitis. 2. Hepatic steatosis. 3. Mildly complex moderate-sized right hepatic cyst, similar to the prior study. 4. Previously noted areas of the CT enhancement within the liver are not apparent on this exam. A dedicated MRI with contrast is recommended on a nonemergent basis to evaluate for interval change since 2018. Dictated by: Alex Hernandez M.D. on 07/29/2019 at 14:50 Approved by: Alex Hernandez M.D. on 07/29/2019 at 14:56 MDM Narrative Medical decision making narrative: This is a 64-year-old female who presents to ED with chronic upper abdominal pain for last 2 years which has been increasing with severity for last 5 days in right upper abdomen and flank region. Patient denies constitutional symptoms. Patient reports she has been moving funny triggers at home and states feels like a pulled muscle. Patient has history of hemangioma, non alcoholic fatty liver disease. She denies urinary symptoms. Urine test today does not appears to be having on infection. Lab tests were unremarkable without leukocytosis but mildly elevated liver function tests of AST and ALT. Test on upper abdomen shows no evidence of cholecystitis cystitis or cholelithiasis. There is hepatic steatosis with mild complex moderate size right hepatic cyst which has not been changing from prior study. Pancreas and right kidney are within normal limits without hydronephrosis and no free fluid at dental divided in the abdomen. Patient reports her pain improved after taking 400 mg of ibuprofen while in ED. patient advised follow-up with PCP on days findings with ultrasound and lab test and further possible imaging test of MRI of liver outpatiently. Patient advised to continue with PPI, take rmic-rle-xmbwejy Tylenol and or Motrin as needed with precautions for GI upset from ibuprofen. Return precautions were discussed with the patient and patient verbalized understanding and in agreement with the treatment plan. <West De Leon MD - Last Filed: 07/30/19 07:45> Lab Data Labs: Lab Results 07/29/19 07/29/19 07/29/19 Range/Units 14:00 14:00 16:15 WBC 6.7 (4.5-11.0) X10^3/uL RBC 4.64 (4.0-5.2) X10^6/uL Hgb 14.1 (12.0-16.0) g/dL Hct 41.0 (36-46) % MCV 88.3 (80-100) fL MCH 30.4 (26-34) PG MCHC 34.4 (30-36) % RDW 13.4 (11.6-14.8) % Plt Count 264 (150-400) X10^3/uL Neut % (Auto) 62.7 (50-75) % Lymph % (Auto) 29.5 (25-40) % [place] % (Auto) 4.7 (3-14) % Eos % (Auto) 2.0 (2-4) % Baso % (Auto) 1.1 (0-2) % Neut # (Auto) 4200 (7481-4790) /uL Lymph # (Auto) 2000 (7001-0993) /uL [place] # (Auto) 300 (0-900) /uL Eos # (Auto) 100 (0-450) /uL Baso # (Auto) 100 (0-100) /uL Sodium 141 (137-145) mmol/L Potassium 4.0 (3.4-5.1) mmol/L Chloride 106 (98-107) mmol/L Carbon Dioxide 26 (22-32) mmol/L BUN 14 (7-17) mg/dL Creatinine 0.67 (0.52-1.04) mg/dL Estimated GFR > 60.0 (>60) mL/min BUN/Creatinine Ratio 20.9 (6-22) Glucose 122 H (80-110) mg/dL Calcium 9.3 (8.4-10.2) mg/dL Total Bilirubin 0.7 (0.2-1.3) mg/dL AST 43 H (14-36) IU/L ALT 45 H (<35) IU/L Alkaline Phosphatase 99 (38-126) U/L Total Protein 8.1 (6.3-8.2) g/dL Albumin 4.7 (3.5-5.0) g/dL Globulin 3.4 (1.7-4.1) g/dL Albumin/Globulin Ratio 1.4 (1.0-2.8) Lipase 95 (23-300) U/L Urine RBC None seen (0-5/HPF) Urine WBC 0-1/hpf (0-5/HPF) Ur Squamous Epith Cells 0-1 /hpf (0-5/HPF) Ur Transition Epith Cell 0-1/hpf (0-5/HPF) Ur Renal Epithelial Cell 0-1/hpf (0-1/HPF) Urine Bacteria None seen (None) Ur Culture Indicated? Cult not indicated Point of care testing: Urine Dip Bedside Urine Glucose Negative Bedside Urine Bilirubin - Negative Bedside Urine Ketone - Negative Urine Specific [place] 1.015 Bedside Urine Occult Blood - Negative Bedside Urine pH 7.0 Bedside Urine Protein - Negative Bedside Urine Urobilinogen - Negative Bedside Urine Nitrite - Negative Bedside Urine Leukocytes + 70 Esterase Discharge Plan Departure Patient Disposition: Home Clinical Impression: Abdominal pain, right upper quadrant Discharge Date/Time: 07/29/19 17:10 Instructions: DI for Abdominal Pain-Adult, DI for Nonalcoholic Fatty Liver Disease Activity Restrictions/Additional Instructions: You have been diagnosed with [right upper abdominal and flank pain. No signs of urinary tract infection per urine test. Blood tests were unremarkable except mildly elevated liver function test. Ultrasound on upper abdomen indicates no evidence of gallstones or cholecystitis. It indicates hepatics steatosis and mild complex, moderate size right hepatic cyst which you are already aware of. You can follow-up with her primary care physician with a dedicated MRI with contrast on liver non urgently.]. What to do: *Take your medications as directed. You felt improved with ibuprofen. You can take qdvk-cga-iofzadc Tylenol and or Motrin as needed for discomfort. You can increase the ibuprofen to 400 mg up to 3 times a day as needed with food. Tylenol 650 mg up to 3 to 4 times a day as needed for discomfort. *Follow up with your primary care provider in 2-3 days, call for an appointment. Let them know you were seen in the ED and that we asked you to be seen in follow up. *Return to ED if you have any new, worsening, or concerning symptoms, such as [chest pain, breathing difficulty, unable to tolerate fluids, fever, or any acute concerns]. Prescriptions: No Action sctprehuit-yjnyfnczatwag-zuea 50-325-40 mg tablet See Rx Instructions PO Q6H PRN (Reason: Migraine Headache) RF: 0 Prilosec OTC 20 MG tablet,delayed release (DR/EC) 20 mg PO QDAY Qty: 0 RF: 0 ibuprofen [Advil] 200 mg tablet 200 mg PO Q6H PRN (Reason: Pain (Scale Score 1-3)) RF: 0 Referrals: Jean Carlos Dyer DO [Primary Care Provider] -
[2019-07-29 16:01] VITALS: BP 166/79; PULSE 78; RESP 16; O2SAT 99
[2019-07-29 16:22] LABS: Bacteria Urine None Seen; RBC Urine None Seen (0-5/HPF)
[2019-07-29 16:37] LABS: Culture Indicated Urine Cult Not Indicated; Renal Epithelial Cells Urine 0-1/HPF (0-1/HPF); Squamous Epithelial Cell Urine 0-1 /HPF (0-5/HPF); Transitional Epi Cells Urine 0-1/HPF (0-5/HPF); WBC Urine 0-1/HPF (0-5/HPF)
[2019-07-29 16:57] VITALS: BP 160/71; PULSE 80; RESP 18; O2SAT 97
== END 2019-07-29 17:10 | disposition home or self-care (01) ==
PROVIDERS: Emergency Provider Nurse Practitioner Family; Family Provider Family Medicine; PCP Family Medicine
DX: R10.11 Right upper quadrant pain (principal)
CPT/HCPCS: 36415; 76705; 80053; 81003; 81015; 83690; 85025; 99284; J1885

== ENCOUNTER → 2019-08-06 09:00 | Outpatient (CLI) | payer MEDICARE, SELFPAY ==
--- NOTE | 2019-08-06 09:03 | DI.MRI.S_ITS ---
PROCEDURE: MR ABDOMEN WO/W CON INDICATIONS: Hepatic Cyst TECHNIQUE: Coronal HASTE, axial 2D FLASH in- and azd-xh-jemus; axial breath-hold T2 FSE. Dynamic axial VIBE during the administration of contrast; post-contrast coronal VIBE or 2D FLASH with fat saturation from the hepatic dome to the iliac crests. Optional diffusion weighted imaging and ADC may be performed. COMPARISON: [facility], CT, ABDOMEN/PELVIS WITH CONTRAST, 07/17/2017, 11:10. [facility], MR, MR ABDOMEN WO/W CON, 10/21/2017, 7:20. FINDINGS: Image quality: There is motion artifact markedly limiting evaluation. Lung bases: No basal pleural effusions. Heart size is normal. Solid organs: Liver demonstrates diffuse heterogeneous signal dropout on ngk-kt-vdibb images consistent with fatty infiltration. Small hypervascular oval lesions are redemonstrated, including a 1.0 cm lesion anteriorly in segment 8, a 0.9 cm lesion medially in segment 8 adjacent to the inferior vena cava, a 0.9 cm lesion laterally in segment 7, and a small 0.4 cm lesion posteriorly in segment 7. These are not well seen on the arterial and portal venous phases on the current study due to extensive motion artifact but appear stable in size and again demonstrate persistent hypervascular enhancement on the delayed phase. Mild associated vascular shunting is again noted along the anterior lesion in the hepatic dome and lateral lesion in segment 7. No definite new suspicious mass lesions. There is a small peripheral area of capsular retraction with an underlying small cystic cavity redemonstrated inferiorly in segment 7 suggestive of a prior ablation cavity. A large lobulated cyst or cluster of cysts measuring up to 7.6 cm in aggregate dimension is redemonstrated in segment 4A of the left lobe. A smaller 2.2 cm cyst is again noted in segment 2. Gallbladder appears within normal limits without gallstones. Biliary system is non dilated. Pancreas is normal in morphology. Spleen is normal in size and enhancement. No adrenal nodules. Both kidneys demonstrate normal size and enhancement, without hydronephrosis. Nodes and vessels: No retroperitoneal or mesenteric adenopathy by size criteria. Aorta and inferior vena cava are normal in size. Bowel and peritoneum: Visualized bowel loops are normal in caliber. No free fluid. Bones and soft tissues: No ventral hernias. Bone marrow is normal in overall signal. IMPRESSION: 1. Four small hypervascular hepatic lesions appear stable in size compared to the prior MRI study with imaging findings again likely representing small hemangiomas. 2. Small region of capsular retraction again noted laterally in the right hepatic lobe suggesting sequela of prior ablation. 3. Left hepatic cysts redemonstrated. 4. Hepatic steatosis. Dictated by: Ronn Joyce M.D. on 08/06/2019 at 10:35 Approved by: Ronn Joyce M.D. on 08/06/2019 at 11:03
== END ==
PROVIDERS: Family Provider Family Medicine; PCP Family Medicine; Referring Provider Family Medicine; Visit Provider Family Medicine
DX: K76.89 Other specified diseases of liver (principal); K76.0 Fatty (change of) liver, not elsewhere classified
CPT/HCPCS: 74183; A9579

== ENCOUNTER → 2019-09-02 11:04 | Outpatient (CLI) | payer MEDICARE, SELFPAY ==
--- NOTE | 2019-09-02 11:09 | DI.RAD.S_ITS ---
PROCEDURE: XR SHOULDER RT MIN 2V INDICATIONS: acute right shoulder pain TECHNIQUE: 2 views of the shoulder were acquired. COMPARISON: None. FINDINGS: Bones: No fractures or dislocations. No suspicious bony lesions. Visualized ribs appear intact. Mild acromioclavicular joint osteoarthritis. Soft tissues: No suspicious soft tissue calcifications. IMPRESSION: 1. No fracture. No acute osseous lesion. If symptoms and/or clinical suspicion for pathology persists, further assessment with repeat radiographs (7-10 days) or advanced imaging (e.g. CT, MRI or bone scan) may be helpful. 2. Mild right acromioclavicular joint osteophytes. Dictated by: Luz Mathis MD, PhD on 09/02/2019 at 16:33 Approved by: Luz Mathis MD, PhD on 09/02/2019 at 16:34
== END ==
PROVIDERS: Family Provider Family Medicine; PCP Family Medicine; Referring Provider Family Medicine; Visit Provider Family Medicine
DX: M25.511 Pain in right shoulder (principal); M19.011 Primary osteoarthritis, right shoulder
CPT/HCPCS: 73030

== ENCOUNTER → 2019-10-09 15:19 | Outpatient (CLI) | payer MEDICARE, SELFPAY ==
[2019-10-12 15:10] LABS: Fecal Immunochemical Test Positive (Negative)
== END ==
PROVIDERS: Family Provider Family Medicine; PCP Family Medicine; Referring Provider Family Medicine; Visit Provider Family Medicine
DX: Z12.11 Encounter for screening for malignant neoplasm of colon (principal)
CPT/HCPCS: 82274

== ENCOUNTER → 2019-10-14 11:53 | Outpatient (CLI) | payer MEDICARE, SELFPAY ==
--- NOTE | 2019-10-14 11:54 | DI.MG.S_ITS ---
BILATERAL DIGITAL SCREENING MAMMOGRAM 3D/2D WITH CAD: 10/14/2019 CLINICAL: Routine screening. Family history of breast cancer. Comparison is made to exams dated: 12/09/2017 mammogram, 11/01/2016 mammogram, and 10/04/2015 mammogram - [facility]. There are scattered fibroglandular elements in both breasts. Current study was also evaluated with a Computer Aided Detection (CAD) system. No significant masses, calcifications, or other findings are seen in either breast. There has been no significant interval change. IMPRESSION: NEGATIVE There is no mammographic evidence of malignancy. A 1 year screening mammogram is recommended. This exam was interpreted at Station ID: [id number]. NOTE: For mammograms, a report in lay terms will be sent to the patient. Approximately 15% of breast malignancies will not be visualized mammographically. In the management of a palpable breast mass, a negative mammogram must not discourage biopsy of a clinically suspicious lesion. Electronically Signed By: Nallely dailey/anthony:10/14/2019 17:35:34 letter sent: Normal Exam ACR BI-RADS Category 1: Negative 3341F
== END ==
PROVIDERS: Family Provider Family Medicine; PCP Family Medicine; Referring Provider Family Medicine; Visit Provider Family Medicine
DX: Z12.31 Encounter for screening mammogram for malignant neoplasm of breast (principal); Z80.3 Family history of malignant neoplasm of breast
CPT/HCPCS: 77063; 77067

== ENCOUNTER → 2019-10-27 15:08 | Outpatient (CLI) | payer MEDICARE, SELFPAY ==
[2019-10-28 19:23] LABS: COVID19 Sendout Not Detected (Not Detect)
== END ==
PROVIDERS: Family Provider Family Medicine; PCP Family Medicine; Visit Provider Physician Assistant
DX: Z01.812 Encounter for preprocedural laboratory examination (principal)
CPT/HCPCS: 87635

== ENCOUNTER 2019-10-30 06:38 | Day surgery (SDC) | payer MEDICARE, SELFPAY ==
[2019-10-30] VITALS (13 sets, daily range): BP systolic 98–180; BP diastolic 62–101; PULSE 61–89; RESP 8–18; TEMP 36.1–36.7; O2SAT 89–98; BMI 28.3
--- NOTE | 2019-10-30 | PATH_ITS ---
[facility] Accession Number: [id number] . 01 Material submitted: . rectum - RECTAL POLYP . 02 Diagnosis: Rectal Polyp, Biopsy: Tubular adenoma. MRV 11/03/2019 1047 Local . 02 Electronically signed: . Dl Paula MD, PhD, Pathologist NPI- [id number] . 01 Gross description: . RECTAL POLYP: Received in formalin is 1 fragment(s) of [place], soft tissue measuring 0.4 x 0.3 x 0.6 cm which is inked, bisected and submitted entirely in 1 cassette(s) /QBJ 10/31/2019 0825 Local . 02 Pathologist provided ICD-10: D12.8 . 02 CPT . 301097 Performed at: 01 [facility] [address] [id number] MD Ronn Colmenares MD Phone: [phone] Performed at: [address] [facility] [address] [place], [place] [id number] MD Gabriela Lamas MD Phone: [phone]
--- NOTE | 2019-10-30 07:20 | PM.PREOP ---
Pre-operative Note COVID-19 COVID-19 status: Negative Result date/Date tested (Pos, Neg/Pending): 10/27/19 Interval Note History & Physical reviewed/Exam performed by Physician: Yes Changes to H&P: No ASA Class (for procedural sedation): II
[2019-10-30] MEDS: SODIUM CHLORIDE 0.9% 1,000 ML 200 ML IV (07:23)
--- NOTE | 2019-10-30 07:43 | P.OP.ENDO_ITS ---
Operative Date/Time/Diagnoses Date of procedure: 10/30/19 Time of procedure: 07:43 Pre-op diagnosis: Positive FIT test Procedure & Clinicians Study performed: Colonoscopy Procedural sedation by the endoscopist Polypectomy with cold snare Same procedure as scheduled: Yes Indications: 64 yo woman with positive FIT test, prior colonoscopy in 2006 Surgeon: Margarita Valencia Procedure Notes SCOAP/Timeout: Performed Procedure in detail: The patient was brought to the room and placed in left lateral decubitus position with all bony prominences padded. A time-out was performed and then the patient was given procedural sedation starting with 2 mg of Versed and 100 mcg of fentanyl. A total of 6 mg of Versed and 200 micro g of fentanyl were given for the entire procedure. Vitals were monitored throughout the procedure and remained stable. Once adequately sedated, the procedure was begun. A rectal exam was performed revealing no abnormalities. The colonoscope was then introduced to the rectum and advanced to the cecum in the usual fashion. The cecum was identified by the appendiceal orifice, the mucosal tri- fold, and the ileocecal valve. The scope was then retracted while rotating side to side and examining each mucosal fold. At 15 cm from the anal verge, and the rectum, a 1 cm polyp was seen, and completely removed with cold snare. Good hemostasis was achieved. At the conclusion of the procedure retroflexion was performed and small grade 1-2 internal hemorrhoids without stigmata of bleeding were seen. The scope was then withdrawn from the rectum the procedure was concluded. The patient tolerated the procedure well and was transferred to the PACU in stable condition. Scope withdrawal time: 12 Sedation minutes: 22 Findings: polyp Specimen(s): other (Rectal polyp) Complications: none Impression: Single moderate-sized rectal polyp, completely removed Post-procedure Recommendations: Colonscopy in 5 years (Depending on pathology results) Follow up: as needed Disposition: PACU
[2019-10-30] MEDS: fentaNYL 250 MCG/5 ML INJ IV (08:16)
[2019-10-30] MEDS: MIDAZOLAM 5 MG/5 ML VIAL IV (08:16)
--- NOTE | 2019-10-30 08:35 | SUR.PHASEI ---
Received to PACU after MAC anesthesia. Report received from FRANCIS Blevins. Blood sugar checked per Dr Valencia = 139.
[2019-10-30] MEDS: ONDANSETRON 4 MG/2 ML INJ 8 MG IV (09:27)
--- NOTE | 2019-10-30 09:31 | SUR.PHASEII ---
Nauseated, dry heaved, then vomited, Dr. Valencia made aware, medicated with ondansetron. On continuious pulse o as on admit to Phase 2 as room air sats 88-89%.
--- NOTE | 2019-10-30 14:46 | SUR.PHASEII ---
Late entry: Pt still vomiting after ondansetron given, Dr. Valencia made aware, Compazine ordered, Pt refused medication. Eventually sipped on juan jose aris and ate few bites of crackers. Left when ready and left in stable condition.
== END 2019-10-30 11:14 | disposition home or self-care (01) ==
PROVIDERS: Family Provider Family Medicine; PCP Family Medicine; Referring Provider Surgery; Visit Provider Surgery
PROC: 0DJD8ZZ Inspection of Lower Intestinal Tract, Via Natural or Artificial Opening Endoscopic (ICD-10-PCS; CPT 45378; principal; 2019-10-30 07:45)
DX: K64.0 First degree hemorrhoids (principal); D12.8 Benign neoplasm of rectum
CPT/HCPCS: 45385; 99152; J2250; J2405; J3010

== ENCOUNTER 2019-12-26 14:01 | Emergency (ER) | payer MEDICARE, MEDICAID, SELFPAY ==
[2019-12-26 14:07] VITALS: PULSE 70; RESP 20; TEMP 35.6; O2SAT 97
--- NOTE | 2019-12-26 14:07 | DI.RAD.S_ITS ---
PROCEDURE: XR CHEST 1V INDICATIONS: chest pain TECHNIQUE: One view of the chest was acquired. COMPARISON: [facility], CR, XR CHEST 2V, 10/04/2017, 20:56. [facility], CR, CHEST 1 VIEW, 07/19/2017, 20:17. [facility], CR, XR CHEST 1V, 04/14/2018, 23:27. FINDINGS: Surgical changes and devices: None. Lungs and pleura: An incomplete inspiratory result is noted, causing a crowded appearance to the lung markings. No focal infiltrates are seen. No pneumothorax or significant pleural effusions are seen. Mediastinum: Mediastinal contours appear normal. Heart size is normal. Bones and chest wall: Age-appropriate bony degenerative changes are seen. Mild dextroconvex scoliotic curvature is seen. No suspicious bony lesions. Overlying soft tissues appear unremarkable. IMPRESSION: Limited portable chest examination, without a significant cardiopulmonary abnormality identified. Dictated by: Thomas Monique M.D. on 12/26/2019 at 14:04 Approved by: Thomas Monique M.D. on 12/26/2019 at 14:05
[2019-12-26 14:21] LABS: Add Manual Diff / Slide Review NO; Basophils Absolute Auto 100 /uL (0-100); Basophils Percent Auto 0.8 % (0-2); Eosinophils Absolute Auto 100 /uL (0-450); Eosinophils Percent Auto 2.1 % (2-4); Hematocrit 40.8 % (36-46); Hemoglobin 14.2 g/dL (12.0-16.0); Lymphocytes Absolute Auto 2300 /uL (1100-4500); Lymphocytes Percent Auto 34.1 % (25-40); Mean Corpuscular HGB Conc 34.8 % (30-36); Mean Corpuscular Hemoglobin 30.4 PG (26-34); Mean Corpuscular Volume 87.4 fL (80-100); Monocytes Absolute Auto 400 /uL (0-900); Monocytes Percent Auto 6.4 % (3-14); Neutrophils Absolute Auto 3800 /uL (1500-7000); Neutrophils Percent Auto 56.6 % (50-75); Platelet Count 265 X10^3/uL (150-400); Red Blood Cell Count 4.67 X10^6/uL (4.0-5.2); Red Cell Distribution Width 13.1 % (11.6-14.8); White Blood Cell Count 6.6 X10^3/uL (4.5-11.0)
--- NOTE | 2019-12-26 14:25 | ED_ITS ---
HPI - Arrhythmia/Palpitations <PRANAY Calle - Last Filed: 12/26/19 21:33> General Chief Complaint: Arrhythmia/Palpitations Stated Complaint: HEART FLUTTERS OR VIBRATIONS FOR 4-5 DAYS Time Seen by Provider: 12/26/19 14:09 Source: patient Mode of arrival: Ambulatory Limitations: no limitations History of Present Illness HPI narrative: This is a 64 year female, nonsmoker, has no contributing history presents to ED with chief complain of intermittent heart fluttering and buzzing vibration for last 4 days without other cardiac symptoms such as dyspnea, chest pain, cold sweats, nausea or vomiting. Patient reports occasional dizziness but this is in a new and has been going on. Patient reports this sensations lasts for 5-10 seconds when it comes. Patient associated her symptoms with getting a new puppy and she has not been sleeping at night for several days to [employer] with increase stress. Patient was told once she has high blood pressure but currently is not taking antihypertensive medications was instructed increase physical activities to treat this. Patient states she is in good health condition and exercise regularly and teaches martial arts. Patient denies history of AFib or irregular heartbeats. Patient denies family history of early cardiac . Related Data Home Medications Medication Instructions Recorded Confirmed omeprazole magnesium [Prilosec OTC] 20 mg PO QDAY #0 06/28/17 10/30/19 ibuprofen 200 mg tablet 200 mg PO Q6H PRN 02/06/19 10/30/19 Excedrin Migraine 1.5 tab PO Q4-6H PRN 10/30/19 10/30/19 Allergies Allergy/AdvReac Type Severity Reaction Status Date / Time Penicillins [PENICILLINS] Allergy Mild ITCHY Verified 10/27/19 16:05 sulfamethoxazole Allergy Mild itchy all Verified 10/27/19 16:05 [From Bactrim] over under skin trimethoprim [From Bactrim] Allergy Mild itchy all Verified 10/27/19 16:05 over under skin codeine [CODEINE] Allergy Unknown Verified 10/27/19 16:05 meperidine [MEPERIDINE] Allergy Unknown VOMITING Verified 10/27/19 16:05 Review of Systems <PRANAY Calle - Last Filed: 12/26/19 21:33> Review of Systems Narrative: General: Denies fever, chills, fatigue, malaise, sweats. HEENT: Denies sinus pain, ear pain, sore throat, difficulty swallowing, dizziness. Respiratory: Denies dyspnea, cough, wheezing, hemoptysis, sputum. Cardiovascular: See HPI Gastrointestinal: Denies nausea, vomiting, abdominal pain, diarrhea, constipation, melena. : Denies dysuria, frequency, incontinence, hematuria, urinary retention. Musculoskeletal: Denies weakness, joint pain or bony pain. Skin: Denies rash, skin lesions, or other. Neurologic: Denies weakness, headache, numbness, change in speech, confusion, seizures, incoordination. Psychiatric: See HPI 12-point review of systems is negative except for those stated above. Patient History <PRANAY Calle - Last Filed: 12/26/19 21:33> Medical History Cervical somatic dysfunction (Acute) Cervicalgia (Acute) Cranial somatic dysfunction (Acute) Eczema (Acute) Encounter for screening for cervical cancer (Acute) Family history of breast cancer in female (Acute) Gastroesophageal reflux disease (Acute) Hip pain, bilateral (Acute) History of herpes genitalis (Acute) IT band syndrome (Acute) Itch of eye, right (Acute) Low back pain (Acute) Lump of skin of back (Acute) Rib pain on right side (Acute) Right-sided abdominal pain of unknown cause (Acute) RLQ abdominal pain (Acute) Segmental and somatic dysfunction of abdomen and other regions (Acute) Segmental and somatic dysfunction of pelvic region (Acute) Segmental and somatic dysfunction of rib cage (Acute) Somatic dysfunction of abdominal region (Acute) Somatic dysfunction of left lower extremity (Acute) Somatic dysfunction of sacroiliac region (Acute) Surgical History H/O colonoscopy (Acute) History of bilateral salpingo-oophorectomy (BSO) History of esophagogastroduodenoscopy (EGD) (01/22/07) Status post endometrial ablation Family History Child Brain tumor Father Bleeding ulcer Cancer Mother Depression Breast cancer Social History household members: friend(s) Smoking Status: Never smoker alcohol intake: current Smoking Status: Never smoker alcohol intake frequency: holidays/special occasions only Substance Use Type: does not use Exam <PRANAY Calle - Last Filed: 12/26/19 21:33> Narrative Exam Narrative: GEN: Alert, oriented x 3, well appearing and nourished, and in no acute distress. Head: Normal cephalic, atraumatic. No scalp or temporal tenderness, palpable mass or rash. EYES: Pupils are equal, round, and reactive to light and accommodation. Extraocular muscles are intact bilaterally. There is no subconjunctival hemorrhage, exudate and sclera non-icteric. ENT: Hearing grossly intact. Nose without bleeding, purulent discharge or deviation. Facial sinuses nontender to palpate. Mucous membrane moist, no mucosal lesion. Throat without erythema, tonsillar hypertrophy or exudate. Uv terence in midline, airway patent. Neck: Trachea in midline. No JVD, non-tender without lymphadenopathy. No masses or thyroid megaly. Supple, non-tender and no meningeal signs. CARDIAC: Normal regular rate and rhythm without murmurs, gallops, or rubs. No chest wall tenderness. No peripheral edema, cyanosis or pallor. Capillary refill is less than 2 seconds. RESPIRATORY: Lungs are clear to auscultate bilaterally. No cough, wheezes, rales, or rhonchi. No stridor, respiratory distress, increase work of breathing, or accessary muscle used. ABD: Abdomen soft, nontender and non-distended. No guarding or rebound tenderness to palpate. Bowel sounds are normal in all 4 quadrants. There is no palpable masses or organomegaly. EXT: Full painless ROM of all extremities with no loss of sensation, strength, effusion or edema. SKIN: Warm, dry, normal color for patient. No erythema, lesions or rash over visible areas. BACK: Nontender without deformity or crepitance. No flank tenderness. NEUROLOGICAL: Alert and oriented to place, time and person. Sensation and motor function intact bilaterally. No facial droops, dysphasia. PSYCHIATRIC: Good judgement and reason, without hallucinations, abnormal affect or abnormal behaviors during the examination. Patient is not suicidal. Initial Vital Signs Initial Vital Signs: Vital Signs Temperature 96.1 F L 12/26/19 14:07 Pulse Rate 70 12/26/19 14:07 Respiratory Rate 20 12/26/19 14:07 Pulse Oximetry 97 12/26/19 14:07 <Serg Monzon DO - Last Filed: 01/01/20 01:10> Initial Vital Signs Initial Vital Signs: Vital Signs Temperature 96.1 F L 12/26/19 14:07 Pulse Rate 70 12/26/19 14:07 Respiratory Rate 20 12/26/19 14:07 Pulse Oximetry 97 12/26/19 14:07 Scores <[facility] Last Filed: 12/26/19 21:33> GCS Sparks coma scale eye opening: Spontaneous Twila coma scale verbal response: Orientated Sparks coma scale motor response: Obey commands Sparks coma scale total score: 15 HEART Score Heart Score history: Slightly Suspicious Heart Score EKG: Normal Heart Score Age: > or = 65 years old Heart Score risk factors: No known risk factors Heart Score troponin: < or = to normal limit Heart Score Total: 2 Course <[facility] Last Filed: 12/26/19 21:33> Orders Ordered: ED Orders 12/26/19 14:07 XR chest 1V Stat EKG-12 Lead Stat 12/26/19 14:08 Complete Blood Count AUTO DIFF Stat Comprehensive Metabolic Panel Stat Lipase Stat Magnesium Stat Partial Thromboplastin Time Stat Prothrombin Time INR Stat TSH w/ Reflex to FT4 Stat Troponin & CK Cardiac Panel Stat Vital Signs Vital signs: Vital Signs - 8 hr 12/26/19 14:07 12/26/19 15:41 Temperature 96.1 F L Pulse Rate 70 63 Respiratory Rate 20 20 Blood Pressure 168/82 H Pulse Oximetry 97 98 <Serg Monzon DO - Last Filed: 01/01/20 01:10> Orders Ordered: ED Orders 12/26/19 14:07 XR chest 1V Stat EKG-12 Lead Stat 12/26/19 14:08 Complete Blood Count AUTO DIFF Stat Comprehensive Metabolic Panel Stat Lipase Stat Magnesium Stat Partial Thromboplastin Time Stat Prothrombin Time INR Stat TSH w/ Reflex to FT4 Stat Troponin & CK Cardiac Panel Stat Vital Signs Vital signs: Vital Signs - 8 hr 12/26/19 14:07 12/26/19 15:41 Temperature 96.1 F L Pulse Rate 70 63 Respiratory Rate 20 20 Blood Pressure 168/82 H Pulse Oximetry 97 98 MDM - Arrhythmia/Palpitations <Abelino Michael-Freddie PRANAY - Last Filed: 12/26/19 21:33> Differential Diagnosis Differential diagnosis: Likely palpitations, anxiety, artial fibrillation, artial flutter, supraventricular tachycardia and other (NSTEMI, situational stress, hyperthyroidism, abnormal electrolytes) Medical Records Attestation: I reviewed the patient's medical records. Lab Data Attestation: I reviewed the patient's lab results. Result diagrams: 12/26/19 14:08 12/26/19 14:08 Labs: Lab Results 12/26/19 12/26/19 12/26/19 Range/Units 14:08 14:08 14:08 WBC 6.6 (4.5-11.0) X10^3/uL RBC 4.67 (4.0-5.2) X10^6/uL Hgb 14.2 (12.0-16.0) g/dL Hct 40.8 (36-46) % MCV 87.4 (80-100) fL MCH 30.4 (26-34) PG MCHC 34.8 (30-36) % RDW 13.1 (11.6-14.8) % Plt Count 265 (150-400) X10^3/uL Neut % (Auto) 56.6 (50-75) % Lymph % (Auto) 34.1 (25-40) % [place] % (Auto) 6.4 (3-14) % Eos % (Auto) 2.1 (2-4) % Baso % (Auto) 0.8 (0-2) % Neut # (Auto) 3800 (6117-1909) /uL Lymph # (Auto) 2300 (6249-3981) /uL [place] # (Auto) 400 (0-900) /uL Eos # (Auto) 100 (0-450) /uL Baso # (Auto) 100 (0-100) /uL PT 10.7 (10.1-12.7) SECONDS INR 0.9 (0.9-1.3) APTT 30 (26.4-36.2) SECONDS Sodium 142 (137-145) mmol/L Potassium 3.7 (3.4-5.1) mmol/L Chloride 102 (98-107) mmol/L Carbon Dioxide 30 (22-32) mmol/L BUN 16 (7-17) mg/dL Creatinine 0.74 (0.52-1.04) mg/dL Estimated GFR > 60.0 (>60) mL/min BUN/Creatinine Ratio 21.6 (6-22) Glucose 117 H (80-110) mg/dL Calcium 9.1 (8.4-10.2) mg/dL Magnesium 2.2 (1.6-2.3) mg/dL Total Bilirubin 0.4 (0.2-1.3) mg/dL AST 26 (14-36) IU/L ALT 37 H (<35) IU/L Alkaline Phosphatase 108 (38-126) U/L Total Creatine Kinase 87 (30-135) U/L CK-MB (CK-2) TNP CK-MB (CK-2) Rel Index TNP Troponin I < 0.012 (0.01-0.034) ng/mL Total Protein 8.0 (6.3-8.2) g/dL Albumin 4.6 (3.5-5.0) g/dL Globulin 3.4 (1.7-4.1) g/dL Albumin/Globulin Ratio 1.4 (1.0-2.8) Lipase 152 (23-300) U/L TSH (0.47-4.68) uIU/mL 12/26/19 Range/Units 14:08 WBC (4.5-11.0) X10^3/uL RBC (4.0-5.2) X10^6/uL Hgb (12.0-16.0) g/dL Hct (36-46) % MCV (80-100) fL MCH (26-34) PG MCHC (30-36) % RDW (11.6-14.8) % Plt Count (150-400) X10^3/uL Neut % (Auto) (50-75) % Lymph % (Auto) (25-40) % [place] % (Auto) (3-14) % Eos % (Auto) (2-4) % Baso % (Auto) (0-2) % Neut # (Auto) (3771-1924) /uL Lymph # (Auto) (1721-9840) /uL [place] # (Auto) (0-900) /uL Eos # (Auto) (0-450) /uL Baso # (Auto) (0-100) /uL PT (10.1-12.7) SECONDS INR (0.9-1.3) APTT (26.4-36.2) SECONDS Sodium (137-145) mmol/L Potassium (3.4-5.1) mmol/L Chloride (98-107) mmol/L Carbon Dioxide (22-32) mmol/L BUN (7-17) mg/dL Creatinine (0.52-1.04) mg/dL Estimated GFR (>60) mL/min BUN/Creatinine Ratio (6-22) Glucose (80-110) mg/dL Calcium (8.4-10.2) mg/dL Magnesium (1.6-2.3) mg/dL Total Bilirubin (0.2-1.3) mg/dL AST (14-36) IU/L ALT (<35) IU/L Alkaline Phosphatase (38-126) U/L Total Creatine Kinase (30-135) U/L CK-MB (CK-2) CK-MB (CK-2) Rel Index Troponin I (0.01-0.034) ng/mL Total Protein (6.3-8.2) g/dL Albumin (3.5-5.0) g/dL Globulin (1.7-4.1) g/dL Albumin/Globulin Ratio (1.0-2.8) Lipase (23-300) U/L TSH 3.99 (0.47-4.68) uIU/mL Imaging Data Chest x-ray: Radiologist's Impresson: [address] [id number] XRay Report Signed Patient: Trudi Contreras LMR#: [id number] : 5Acct:[id number] Age/Sex: 64 / FDate of Service: 12/26/19 Loc: ED Accession Number: [id number] Procedure: XR chest 1V Ordering Provider: Serg Monzon D.O. PROCEDURE: XR CHEST 1V INDICATIONS: chest pain TECHNIQUE: One view of the chest was acquired. COMPARISON: [facility], CR, XR CHEST 2V, 10/04/2017, 20:56. [facility], CR, CHEST 1 VIEW, 07/19/2017, 20:17. [facility], CR, XR CHEST 1V, 04/14/2018, 23:27. FINDINGS: Surgical changes and devices: None. Lungs and pleura: An incomplete inspiratory result is noted, causing a crowded appearance to the lung markings. No focal infiltrates are seen. No pneumothorax or significant pleural effusions are seen. Mediastinum: Mediastinal contours appear normal. Heart size is normal. Bones and chest wall: Age-appropriate bony degenerative changes are seen. Mild dextroconvex scoliotic curvature is seen. No suspicious bony lesions. Overlying soft tissues appear unremarkable. IMPRESSION: Limited portable chest examination, without a significant cardiopulmonary abnormality identified. Dictated by: Thomas Monique M.D. on 12/26/2019 at 14:04 Approved by: Thomas Monique M.D. on 12/26/2019 at 14:05 ECG Data Attestation: I personally reviewed and interpreted this ECG as follows: Prior ECG tracings: available for review Interpretation: Normal sinus rhythm rate at 67. Left dominant axis. OK interval 170, QRS duration 94, QT/QTC 406/429. No acute ST changes. No significant changes from previous EKG tracings. MDM Narrative Medical decision making narrative: This is a 64 year female who presents to ED with sensation of intermittent heart fluttering and buzzing for last 4 days without other cardiac symptoms. Patient reports has not been sleeping well for last 4 days with increased stress from having a new puppy and concerns with potty training. Patient has no previous cardiac history is. Heart score is 2. No significant family history of early from heart disease. EKG shows sinus rhythm rate at 67 without acute changes. Chest x-ray without acute findings. Cardiac enzymes were negative and deferred additional repeat cardiac enzymes since patient's symptoms occurred last 4 days. Stable H&H. Unremarkable electrolytes. Within normal TSH. Patient reported similar symptoms in ED without ECG changes on continuous rn cardiac. Patient's symptoms likely from lack of sleep and stress given negative workup in ED. ronn matute had elevated blood pressure greater than systolic 200 and diastolic 110 in ED which improved to 168/82 before discharged to home. patient advised try to get a good sleep and patient declined medications for this. She states will try imagery therapy and walking to cope with stress. Return precautions were discussed with patient and advised to follow up with primary care physician for further cardiac workup possibly with Holter or event monitor and to follow-up on elevated blood pressure. Patient verbalized understanding and in agreement with the treatment plan. <Serg Monzon DO - Last Filed: 01/01/20 01:10> Lab Data Labs: Lab Results 12/26/19 12/26/19 12/26/19 Range/Units 14:08 14:08 14:08 WBC 6.6 (4.5-11.0) X10^3/uL RBC 4.67 (4.0-5.2) X10^6/uL Hgb 14.2 (12.0-16.0) g/dL Hct 40.8 (36-46) % MCV 87.4 (80-100) fL MCH 30.4 (26-34) PG MCHC 34.8 (30-36) % RDW 13.1 (11.6-14.8) % Plt Count 265 (150-400) X10^3/uL Neut % (Auto) 56.6 (50-75) % Lymph % (Auto) 34.1 (25-40) % [place] % (Auto) 6.4 (3-14) % Eos % (Auto) 2.1 (2-4) % Baso % (Auto) 0.8 (0-2) % Neut # (Auto) 3800 (0268-1347) /uL Lymph # (Auto) 2300 (4655-5605) /uL [place] # (Auto) 400 (0-900) /uL Eos # (Auto) 100 (0-450) /uL Baso # (Auto) 100 (0-100) /uL PT 10.7 (10.1-12.7) SECONDS INR 0.9 (0.9-1.3) APTT 30 (26.4-36.2) SECONDS Sodium 142 (137-145) mmol/L Potassium 3.7 (3.4-5.1) mmol/L Chloride 102 (98-107) mmol/L Carbon Dioxide 30 (22-32) mmol/L BUN 16 (7-17) mg/dL Creatinine 0.74 (0.52-1.04) mg/dL Estimated GFR > 60.0 (>60) mL/min BUN/Creatinine Ratio 21.6 (6-22) Glucose 117 H (80-110) mg/dL Calcium 9.1 (8.4-10.2) mg/dL Magnesium 2.2 (1.6-2.3) mg/dL Total Bilirubin 0.4 (0.2-1.3) mg/dL AST 26 (14-36) IU/L ALT 37 H (<35) IU/L Alkaline Phosphatase 108 (38-126) U/L Total Creatine Kinase 87 (30-135) U/L CK-MB (CK-2) TNP CK-MB (CK-2) Rel Index TNP Troponin I < 0.012 (0.01-0.034) ng/mL Total Protein 8.0 (6.3-8.2) g/dL Albumin 4.6 (3.5-5.0) g/dL Globulin 3.4 (1.7-4.1) g/dL Albumin/Globulin Ratio 1.4 (1.0-2.8) Lipase 152 (23-300) U/L TSH (0.47-4.68) uIU/mL 12/26/19 Range/Units 14:08 WBC (4.5-11.0) X10^3/uL RBC (4.0-5.2) X10^6/uL Hgb (12.0-16.0) g/dL Hct (36-46) % MCV (80-100) fL MCH (26-34) PG MCHC (30-36) % RDW (11.6-14.8) % Plt Count (150-400) X10^3/uL Neut % (Auto) (50-75) % Lymph % (Auto) (25-40) % [place] % (Auto) (3-14) % Eos % (Auto) (2-4) % Baso % (Auto) (0-2) % Neut # (Auto) (1906-0336) /uL Lymph # (Auto) (8469-1634) /uL [place] # (Auto) (0-900) /uL Eos # (Auto) (0-450) /uL Baso # (Auto) (0-100) /uL PT (10.1-12.7) SECONDS INR (0.9-1.3) APTT (26.4-36.2) SECONDS Sodium (137-145) mmol/L Potassium (3.4-5.1) mmol/L Chloride (98-107) mmol/L Carbon Dioxide (22-32) mmol/L BUN (7-17) mg/dL Creatinine (0.52-1.04) mg/dL Estimated GFR (>60) mL/min BUN/Creatinine Ratio (6-22) Glucose (80-110) mg/dL Calcium (8.4-10.2) mg/dL Magnesium (1.6-2.3) mg/dL Total Bilirubin (0.2-1.3) mg/dL AST (14-36) IU/L ALT (<35) IU/L Alkaline Phosphatase (38-126) U/L Total Creatine Kinase (30-135) U/L CK-MB (CK-2) CK-MB (CK-2) Rel Index Troponin I (0.01-0.034) ng/mL Total Protein (6.3-8.2) g/dL Albumin (3.5-5.0) g/dL Globulin (1.7-4.1) g/dL Albumin/Globulin Ratio (1.0-2.8) Lipase (23-300) U/L TSH 3.99 (0.47-4.68) uIU/mL Discharge Plan Departure Patient Disposition: Home Clinical Impression: Heart palpitations, Situational stress Discharge Date/Time: 12/26/19 15:58 Instructions: DI for Insomnia, DI for Palpitations Activity Restrictions/Additional Instructions: You have been diagnosed with [palpitation and increased situational stress with insomnia. EKG, lab tests, chest x-rays are assuring. Cardiac enzymes, TSH, electrolytes are within normal.]. What to do: *Take your medications as directed. *Follow up with your primary care provider in 2-3 days, call for an appointment. Let them know you were seen in the ED and that we asked you to be seen in follow up. You have elevated blood pressure in ED without significant history. Please try to manage her stress and getting a good sleep may help with her symptoms. Please follow-up with Dr. Dyer for outspatient workup for palpitations with possible Halter monitor. *Return to ED if you have any new, worsening, or concerning symptoms, such as [chest pain, breathing difficulty, dizziness, unable to tolerate fluids, near syncope, cold sweats, nausea or vomiting or any acute concerns]. Prescriptions: No Action omeprazole magnesium [Prilosec OTC] 20 MG tablet,delayed release (DR/EC) 20 mg PO QDAY Qty: 0 RF: 0 ibuprofen [Advil] 200 mg tablet 200 mg PO Q6H PRN (Reason: Pain (Scale Score 1-3)) RF: 0 Excedrin Migraine 250-250-65 mg Tablet 1.5 tab PO Q4-6H PRN (Reason: Pain (Scale Score 1-3)) RF: 0 Referrals: Jean Carlos Dyer DO [Primary Care Provider] - <Serg Monzon DO - Last Filed: 01/01/20 01:10> Cosign ED Attending Cosignature Attestation: I was immediately available in the department for consultation. This documentation has been reviewed and I agree with assessment and plan. Supervised by Serg Monzon DO
[2019-12-26 14:27] LABS: INR 0.9 (0.9-1.3); Prothrombin Time 10.7 SECONDS (10.1-12.7)
[2019-12-26 14:30] LABS: PTT Partial Thromboplastin Tim 30 SECONDS (26.4-36.2)
[2019-12-26 14:31] LABS: Alanine Aminotransferase 37 IU/L (<35); Albumin 4.6 g/dL (3.5-5.0); Albumin Globulin Ratio 1.4 (1.0-2.8); Alkaline Phosphatase 108 U/L (38-126); Aspartate Aminotransferase 26 IU/L (14-36); BUN Creatinine Ratio 21.6 (6-22); Bilirubin Total 0.4 mg/dL (0.2-1.3); Blood Urea Nitrogen 16 mg/dL (7-17); Calcium 9.1 mg/dL (8.4-10.2); Carbon Dioxide 30 mmol/L (22-32); Chloride 102 mmol/L (98-107); Creatine Kinase 87 U/L (30-135); Estimated Glomerular Filt Rate > 60.0 mL/min (>60); Globulin 3.4 g/dL (1.7-4.1); Glucose 117 mg/dL (80-110); HEMOLYSIS < 15 (0-50); Lipase 152 U/L (23-300); Magnesium 2.2 mg/dL (1.6-2.3); Potassium 3.7 mmol/L (3.4-5.1); Sodium 142 mmol/L (137-145)
[2019-12-26 14:43] LABS: Troponin I < 0.012 ng/mL (0.01-0.034)
[2019-12-26 15:07] LABS: TSH w/ Reflex to FT4 3.99 uIU/mL (0.47-4.68)
[2019-12-26 15:41] VITALS: BP 168/82; PULSE 63; RESP 20; O2SAT 98
== END 2019-12-26 15:58 | disposition home or self-care (01) ==
PROVIDERS: Emergency Medicine; Emergency Provider Nurse Practitioner Family; Family Provider Family Medicine; PCP Family Medicine
DX: F43.9 Reaction to severe stress, unspecified (principal); R00.2 Palpitations
CPT/HCPCS: 36415; 71045; 80053; 82550; 83690; 83735; 84443; 84484; 85025; 85610; 85730; 93005; 99283

== ENCOUNTER → 2020-03-14 10:00 | Outpatient (CLI) | payer MEDICARE, MEDICAID, SELFPAY ==
--- NOTE | 2020-03-14 10:01 | DI.US.S_ITS ---
ULTRASOUND OF RIGHT BREAST: 03/14/2020 CLINICAL: 6 month follow-up of cysts. Comparison is made to exams dated: 10/14/2019 mammogram, 12/09/2017 mammogram, 11/01/2016 mammogram, 10/04/2015 [facility], and 09/10/2019 ultrasound. Color flow and real-time ultrasound of the right breast were performed. Jonas scale images of the real-time examination were reviewed. There is a possible 4.8 cm x 3.3 cm x 1.2 cm oval lipoma in the right axillary tail 8 cm from the nipple. This oval mass is isoechoic to adjacent fat. This correlates as palpated and with area of clinical concern. Color flow imaging demonstrates that there is no vascularity present. Several normal axillary lymph nodes are also incidentally noted. IMPRESSION: PROBABLY BENIGN The possible 4.8 cm x 3.3 cm x 1.2 cm oval lipoma corresponds to palpable area of concern and is probably benign. A follow-up right ultrasound in 6 months is recommended to demonstrate stability. The patient will also be due for screening mammogram of the bilateral breast at that time. Also, recommend clinical follow up for persistent or worsening symptoms, or development of any clinically suspicious findings. Findings and recommendations were conveyed to the patient during today's evaluation. This exam was interpreted at Station ID: [id number]. Electronically Signed By: Bob Molina M.D. at/:03/16/2020 17:32:55 letter sent: Clinical Evaluation Ultrasound BI-RADS: 3 Probably benign
== END ==
PROVIDERS: Family Provider Family Medicine; PCP Family Medicine; Referring Provider Family Medicine; Visit Provider Family Medicine
DX: R92.8 Other abnormal and inconclusive findings on diagnostic imaging of breast (principal); N63.31 Unspecified lump in axillary tail of the right breast
CPT/HCPCS: 76642

== ENCOUNTER → 2020-04-12 13:05 | Outpatient (CLI) | payer MEDICARE, MEDICAID, SELFPAY ==
[2020-04-12 15:23] LABS: COVID19 -Nasal RAPID Negative (Negative)
== END ==
PROVIDERS: Family Provider Family Medicine; PCP Family Medicine; Visit Provider Surgery
DX: Z01.812 Encounter for preprocedural laboratory examination (principal); Z20.822 Contact with and (suspected) exposure to COVID-19
CPT/HCPCS: 87635; C9803

== ENCOUNTER 2020-04-13 07:52 | Day surgery (SDC) | payer MEDICARE, MEDICAID, SELFPAY ==
[2020-04-08 13:13] VITALS: BMI 28.9
[2020-04-13] VITALS (13 sets, daily range): BP systolic 70–188; BP diastolic 43–100; PULSE 60–89; RESP 8–17; TEMP 35.9–36.6; O2SAT 88–98; BMI 28.9
--- NOTE | 2020-04-13 | PATH_ITS ---
[facility] Accession Number: [id number] . 01 Material submitted: . axilla - RIGHT AXILLARY MASS . 02 Diagnosis: Right Axillary Mass, Excision: Mature adipose tissue, consistent with lipoma. Benign lymphoid tissue. No evidence of malignancy. [facility] 04/18/2020 1223 Local . 02 Electronically signed: . Dl Paula MD, PhD, Pathologist NPI- [id number] . 01 Gross description: . The specimen is received in formalin, labeled right axillary mass and consists of a 5.0 x 3.0 x 2.5 cm cleveland-yellow fragment of adipose tissue, which is inked blue and sectioned to reveal cleveland-yellow lobulated cut surfaces. [employer] Program Director sections are submitted in cassettes A1-A5. ([id number]) /MRV 04/15/2020 1325 Local . 02 Pathologist provided ICD-10: D17.9 . 02 CPT . 082503 Performed at: 01 [facility] [address], [place], [place] [id number] MD Ronn Colmenares MD Phone: [phone] Performed at: 02 [facility] [address] [place], [place] [id number] MD Gabriela Lamas MD Phone: [phone]
[2020-04-13] MEDS: LACTATED RINGERS 1,000 ML 42 ML IV ×2 (07:50→09:50)
--- NOTE | 2020-04-13 08:31 | PM.PREOP ---
Pre-operative Note COVID-19 COVID-19 status: Negative Result date/Date tested (Pos, Neg/Pending): 04/12/20 Interval Note History & Physical reviewed/Exam performed by Physician: Yes Changes to H&P: No
--- NOTE | 2020-04-13 08:40 | PM.OP.1 ---
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 Sequential compression devices were placed on both legs and turned on. General anesthesia was induced and the patient was intubated by the anesthesiologist with an LMA. Appropriate perioperative antibiotics were given. Surgical time out was performed. Local anesthetic was infiltrated into the skin at a skin crease in the right axilla, overlying the palpable mass. An 8cm curvilinear incision was made in the skin at this site, and dissection was carried down through the dermis and subcutaneous fat tissue using cautery. Hemostasis was maintained throughout the dissection. The clavipectoral fascia was opened, and a large fatty mass was encountered. The mass was dissected free from the surrounding subcutaneous fat tissue using cautery. Two silk ties were placed at the vascular pedicle entering the mass at its base. The mass was then divided with good hemostasis. The mass was passed off the field for pathology. Additional local anesthetic was given using a total of 25mL of 0.25% Marcaine with epinephrine. The fascia and dermis were closed in layers using 3-0 Vicryl and 4-0 Monocryl suture. The skin was sealed with Dermabond. The patient was then awakened from anesthesia and extubated. Needle sponge and instrument counts were correct x 2. The patient was transferred to the PACU in stable condition. Complications: none Post-operative Condition: stable Disposition: PACU
[2020-04-13] MEDS: CEFAZOLIN 2 GM/100 ML FROZ.PIGGY IV (08:58)
--- NOTE | 2020-04-13 09:07 | SUR.OPER ---
Supine on padded OR bed, head on pillow, arms secured on padded arm boards at <90 degrees abduction, legs uncrossed, safety belt at thigh, tape over blanket over lower legs.
[2020-04-13] MEDS: BUPIVACAINE 0.25% W/ EPI (PF) 10 ML VIAL 20 ML INJ (09:15)
== END 2020-04-13 11:00 | disposition home or self-care (01) ==
PROVIDERS: Family Provider Family Medicine; PCP Family Medicine; Referring Provider Surgery; Visit Provider Surgery
PROC: (CPT 21554; principal; 2020-04-13 08:45)
DX: D17.1 Benign lipomatous neoplasm of skin and subcutaneous tissue of trunk (principal); R20.0 Anesthesia of skin; M79.621 Pain in right upper arm
CPT/HCPCS: 21554; 82962; J0690; J1100; J1885; J2405; J2704; J3010

== ENCOUNTER 2020-04-16 11:29 | Emergency (ER) | payer MEDICARE, MEDICAID, SELFPAY ==
[2020-04-16 11:37] VITALS: BP 178/106; PULSE 99; RESP 16; TEMP 37; O2SAT 98; BMI 28.9
--- NOTE | 2020-04-16 11:49 | PC.NURSE ---
patient rerports lypoma removed on sat. today she reports she has numbness from axila to elbow. Pos CMS distally to numb area. surgical site in tact, no drainage. patient states swelling has been reducing.
--- NOTE | 2020-04-16 11:51 | DI.US.S_ITS ---
PROCEDURE: US PERIPH VENOUS UP EXTREM RT INDICATIONS: EDEMA, NUMBNESS POST-OP TECHNIQUE: Real-time imaging, as well as color and pulse Doppler interrogation, was performed of the right upper extremity deep veins from the inferior neck to the antecubital fossa. COMPARISON: None. FINDINGS: The internal jugular vein, visualized portions of the subclavian vein, axillary, and brachial veins are free of intraluminal thrombus. Where physically possible, the veins are normally compressible. Color and pulse Doppler demonstrate normal intraluminal flow, with expected phasicity and pulsatility. Additional scanning of the cephalic and basilic veins of the superficial system demonstrate normal compressibility, without thrombus. Additional images were poor performed of the area of the incision. At this site, there is a nonvascular well-circumscribed heterogeneous mass that measures 5.7 x 6.7 x 9.3 cm. IMPRESSION: Negative for deep venous thrombosis. Likely hematoma seen at the incision site. Dictated by: Thomas Monique M.D. on 04/16/2020 at 12:12 Approved by: Thomas Monique M.D. on 04/16/2020 at 12:13
--- NOTE | 2020-04-16 12:11 | ED_ITS ---
HPI - General Adult General Chief complaint: Extremity Injury, Upper Stated complaint: right arm numbness post-op 04/13/19 Time Seen by Provider: 04/16/20 11:46 History of Present Illness HPI narrative: 64-year-old woman postop right axillary mass removal April 13. Surgery was apparently uncomplicated. Patient notes that since awaking from surgery she continues to have a bandlike area of paresthesia around the upper part of her arm down to the medial aspect of the elbow without weakness of the upper extremity or the hand. She also notes that there is still quite a bit of fullness in the axilla and slightly more swelling to the right arm. In calling to check on the symptoms it was suggested that she come to the emergency room to make sure that she does not have a DVT. Related Data Home Medications Medication Instructions Recorded Confirmed omeprazole magnesium [Prilosec OTC] 20 mg PO QDAY #0 06/28/17 04/13/20 ibuprofen 200 mg tablet 200 mg PO Q6H PRN 02/06/19 04/13/20 Excedrin Migraine 1.5 tab PO Q4-6H PRN 10/30/19 04/13/20 Allergies Allergy/AdvReac Type Severity Reaction Status Date / Time Penicillins [PENICILLINS] Allergy Mild ITCHY Verified 04/13/20 08:18 sulfamethoxazole Allergy Mild itchy all Verified 04/13/20 08:18 [From Bactrim] over under skin trimethoprim [From Bactrim] Allergy Mild itchy all Verified 04/13/20 08:18 over under skin meperidine [MEPERIDINE] Allergy Unknown VOMITING, Verified 04/13/20 08:18 Diarrhea codeine [CODEINE] AdvReac Unknown Nausea Verified 04/13/20 08:18 Review of Systems Review of Systems Narrative: No drainage from the surgical site Reports frequent headaches, sometimes daily minimal 3 days a week No fevers No cough or chest pain. She does complain of mild range of motion pain at the right shoulder related to surgical site incision No abdominal pain, dysuria, flank pain, headache Patient History Medical History Anxiety Cervical somatic dysfunction Cervicalgia Cranial somatic dysfunction Eczema Encounter for screening for cervical cancer Family history of breast cancer in female Gastroesophageal reflux disease Headache, migraine Hip pain, bilateral History of herpes genitalis HTN (hypertension) Hypoglycemia Intermittent paresthesia of hand and foot IT band syndrome Itch of eye, right Lipoma of axilla Lipoma of back Low back pain Lump of skin of back Rib pain on right side Right-sided abdominal pain of unknown cause RLQ abdominal pain Segmental and somatic dysfunction of abdomen and other regions Segmental and somatic dysfunction of pelvic region Segmental and somatic dysfunction of rib cage Sinus drainage Somatic dysfunction of abdominal region Somatic dysfunction of left lower extremity Somatic dysfunction of sacroiliac region Surgical History H/O colonoscopy History of bilateral salpingo-oophorectomy (BSO) History of esophagogastroduodenoscopy (EGD) (01/22/07) Hx of appendectomy (1959) Hx of tonsillectomy (1959) Status post endometrial ablation Family History Child Brain tumor Father Bleeding ulcer Cancer Mother Depression Breast cancer Social History household members: friend(s) Smoking Status: Never smoker alcohol intake: current Smoking Status: Never smoker alcohol intake frequency: holidays/special occasions only Substance Use Type: does not use Exam Narrative Exam Narrative: General: Alert appropriate in no acute distress Respiratory: Able to speak in full sentences, no obvious respiratory distress Skin: No obvious rashes, warm and dry Neurologic: Grossly intact no obvious asymmetries or abnormalities Psych, appropriate insight and affect, cooperative Right upper extremity: Moderate amount of bruising and edema to the surgical site in the right axilla without obvious development of hematoma or abscess. Slight increase in overall extremity edema right compared to left with full range of motion at the elbow and wrist. Good distal pulses. Mild paresthesia proximal right arm encircling the entire arm with a small medial extension to the elbow without skin changes or rash. Initial Vital Signs Initial Vital Signs: Vital Signs Temperature 98.6 F 04/16/20 11:37 Pulse Rate 99 H 04/16/20 11:37 Respiratory Rate 16 04/16/20 11:37 Blood Pressure 178/106 H 04/16/20 11:37 Pulse Oximetry 98 04/16/20 11:37 Course Orders Ordered: ED Orders 04/16/20 11:51 US periph venous up extrem rt Stat Vital Signs Vital signs: Vital Signs - 8 hr 04/16/20 11:37 Temperature 98.6 F Pulse Rate 99 H Respiratory Rate 16 Blood Pressure 178/106 H Pulse Oximetry 98 Medical Decision Making Imaging Data Ultrasound arm and axilla: My Impression: In discussion with offshore wind turbine technician: No DVT of the arm. She does have a 6 x 9 cm hematoma at the surgical site itself MDM Narrative Medical decision making narrative: 64-year-old woman with a 6 x 9 cm hematoma developing the surgical site of recently removed lipoma, right axilla. There is no increasing erythema or pain to suggest infection. Reassurance is given. Care is reviewed briefly with Dr. Donnelly. Given the absence of pain or infection his recommendation was to have her follow-up as an outpatient with Dr. Almodovar on Saturday. Patient is agreeable to this. We did review signs and symptoms of developing infection and she will return should she develop any of these. She also briefly mentioned regular headaches and taking Excedrin. I recommended avoiding this because of the aspirin in it for the time being I also recommended that she talk to her primary care physician about prophylactic medications for chronic headache Discharge Plan Departure Patient Disposition: Home Clinical Impression: Hematoma Chronic headache Qualifiers: Headache type: unspecified Intractability: not intractable Qualified Code(s): R51.9 - Headache, unspecified Instructions: DI for Hematoma (Bruise), DI for Headache Activity Restrictions/Additional Instructions: Thank you for coming in today You do not have a DVT in your arm and do not have any life-threatening issues noted today. You do have a blood clot that is developed at your surgical site. It does not appear to be infected. The fact that you are not needing any additional pain medication for this is very reassuring. I reviewed your case with Dr. Donnelly, our surgeon on-call today. His recommendation was contacting Dr. Almodovar Saturday to schedule an outpatient follow-up and have her evaluate the blood clot in your armpit. We briefly discussed your chronic regular headaches. There are multiple medications to prevent chronic headache such as this. Please schedule an appointment to review options for headache treatment with your primary care provider. If you develop fevers or increasing pain at the surgical site you do need to return to the emergency department for further evaluation Prescriptions: No Action omeprazole magnesium [Prilosec OTC] 20 MG tablet,delayed release (DR/EC) 20 mg PO QDAY Qty: 0 RF: 0 ibuprofen [Advil] 200 mg tablet 200 mg PO Q6H PRN (Reason: Pain (Scale Score 1-3)) RF: 0 Excedrin Migraine 250-250-65 mg Tablet 1.5 tab PO Q4-6H PRN (Reason: Pain (Scale Score 1-3)) RF: 0 Referrals: Jean Carlos Dyer DO [Primary Care Provider] -
[2020-04-16 14:01] VITALS: BP 178/84; PULSE 61; RESP 16; O2SAT 97
== END 2020-04-16 14:02 | disposition home or self-care (01) ==
PROVIDERS: Emergency Provider Emergency Medicine; Family Provider Family Medicine; PCP Family Medicine
DX: L76.32 Postprocedural hematoma of skin and subcutaneous tissue following other procedure (principal); R51.9 Headache, unspecified; I10 Essential (primary) hypertension
CPT/HCPCS: 93971; 99283

== ENCOUNTER → 2020-06-06 13:12 | Outpatient (CLI) | payer MEDICARE, MEDICAID, SELFPAY ==
--- NOTE | 2020-06-06 13:13 | DI.US.S_ITS ---
LIMITED ULTRASOUND OF RIGHT BREAST AND AXILLA: 06/06/2020 CLINICAL: Post right axilla lumpectomy. Comparison is made to exams dated: 03/14/2020 ultrasound, 10/14/2019 mammogram - [facility], 09/10/2019 ultrasound, 11/01/2016 mammogram, 12/09/2017 mammogram, and 10/04/2015 ultrasound - [facility]. Color flow and real-time ultrasound of the right breast axilla were performed on the areas of interest. There is a 0.3 cm x 0.3 cm x 0.1 cm oval mass with a circumscribed margin in the right axillary tail. This oval mass is hyperechoic with a well-defined boundary. This correlates as palpated. Color flow imaging demonstrates that there is no vascularity present. No discrete fluid collection identified in the right axilla. IMPRESSION: PROBABLY BENIGN The 0.3 cm x 0.3 cm x 0.1 cm oval mass has a differential diagnosis of fat necrosis or a lipoma and is probably benign. A follow-up ultrasound in 6 months is recommended. A follow-up ultrasound in 6 months is recommended to demonstrate stability. This exam was interpreted at Station ID: [id number]. Electronically Signed By: Ronn Joyce M.D. ddloli/:06/06/2020 17:13:04 letter sent: Clinical Evaluation Ultrasound BI-RADS: 3 Probably benign
== END ==
PROVIDERS: Family Provider Family Medicine; PCP Family Medicine; Referring Provider Surgery; Visit Provider Surgery
DX: R92.8 Other abnormal and inconclusive findings on diagnostic imaging of breast (principal); L76.34 Postprocedural seroma of skin and subcutaneous tissue following other procedure; N63.31 Unspecified lump in axillary tail of the right breast; Z98.890 Other specified postprocedural states
CPT/HCPCS: 76882

== ENCOUNTER → 2021-01-09 07:19 | Outpatient (CLI) | payer MEDICARE, MEDICAID, SELFPAY ==
[2021-01-09 08:05] LABS: Add Manual Diff / Slide Review NO; Basophils Absolute Auto 100 /uL (0-100); Basophils Percent Auto 1.1 % (0-2); Eosinophils Absolute Auto 200 /uL (0-450); Eosinophils Percent Auto 3.5 % (2-4); Hematocrit 42.4 % (36-46); Hemoglobin 14.4 g/dL (12.0-16.0); Lymphocytes Absolute Auto 2400 /uL (1100-4500); Lymphocytes Percent Auto 38.6 % (25-40); Mean Corpuscular HGB Conc 33.9 % (30-36); Mean Corpuscular Hemoglobin 29.9 PG (26-34); Mean Corpuscular Volume 88.1 fL (80-100); Monocytes Absolute Auto 300 /uL (0-900); Monocytes Percent Auto 5.6 % (3-14); Neutrophils Absolute Auto 3100 /uL (1500-7000); Neutrophils Percent Auto 51.2 % (50-75); Platelet Count 250 X10^3/uL (150-400); Red Blood Cell Count 4.81 X10^6/uL (4.0-5.2); Red Cell Distribution Width 13.2 % (11.6-14.8); White Blood Cell Count 6.1 X10^3/uL (4.5-11.0)
[2021-01-09 08:24] LABS: Alanine Aminotransferase 41 IU/L (<35); Albumin 4.3 g/dL (3.5-5.0); Albumin Globulin Ratio 1.4 (1.0-2.8); Alkaline Phosphatase 100 U/L (38-126); Aspartate Aminotransferase 29 IU/L (14-36); BUN Creatinine Ratio 20.3 (6-22); Bilirubin Total 0.5 mg/dL (0.2-1.3); Blood Urea Nitrogen 14 mg/dL (7-17); Calcium 9.3 mg/dL (8.4-10.2); Carbon Dioxide 32 mmol/L (22-32); Chloride 104 mmol/L (98-107); Cholesterol 210 mg/dL (140-199); Estimated Glomerular Filt Rate > 60.0 mL/min (>60); Glucose 113 mg/dL (80-110); HDL Cholesterol 46 mg/dL (40-60); HEMOLYSIS < 15 (0-50); LDL Cholesterol Calculated 133 mg/dL (<100); Potassium 4.3 mmol/L (3.4-5.1); Sodium 142 mmol/L (137-145); Total Protein 7.3 g/dL (6.3-8.2); Triglycerides 157 mg/dL (35-150)
== END ==
PROVIDERS: Family Provider Family Medicine; PCP Family Medicine; Referring Provider Family Medicine; Visit Provider Family Medicine
DX: E78.5 Hyperlipidemia, unspecified (principal)
CPT/HCPCS: 36415; 80053; 80061; 85025

== ENCOUNTER → 2021-02-02 15:21 | Outpatient (CLI) | payer MEDICARE, MEDICAID, SELFPAY ==
--- NOTE | 2021-02-02 15:22 | DI.MG.S_ITS ---
BILATERAL DIGITAL SCREENING MAMMOGRAM 3D/2D WITH CAD: 02/02/2021 CLINICAL: Routine screening. Family history of breast cancer. Comparison is made to exams dated: 06/06/2020 ultrasound, 10/14/2019 mammogram, and 12/09/2017 mammogram - [facility]. There are scattered fibroglandular elements in both breasts. Current study was also evaluated with a Computer Aided Detection (CAD) system. No significant masses, calcifications, or other findings are seen in either breast. There has been no significant interval change. IMPRESSION: NEGATIVE There is no mammographic evidence of malignancy. A 1 year screening mammogram is recommended. This exam was interpreted at Station ID: [id number]. NOTE: For mammograms, a report in lay terms will be sent to the patient. Approximately 15% of breast malignancies will not be visualized mammographically. In the management of a palpable breast mass, a negative mammogram must not discourage biopsy of a clinically suspicious lesion. Electronically Signed By: Bob kapoor/anthony:02/02/2021 16:58:46 letter sent: Normal Exam ACR BI-RADS Category 1: Negative 3341F
== END ==
PROVIDERS: Family Provider Family Medicine; PCP Family Medicine; Referring Provider Family Medicine; Visit Provider Family Medicine
DX: Z12.31 Encounter for screening mammogram for malignant neoplasm of breast (principal); Z80.3 Family history of malignant neoplasm of breast
CPT/HCPCS: 77063; 77067

== ENCOUNTER → 2021-03-01 12:35 | Outpatient (CLI) | payer MEDICARE, MEDICAID, SELFPAY ==
--- NOTE | 2021-03-01 12:35 | DI.US.S_ITS ---
ULTRASOUND OF RIGHT BREAST AND AXILLA: 03/01/2021 CLINICAL: Patient returns today to evaluate a focal asymmetry in the right axilla. Comparison is made to exams dated: 02/02/2021 mammogram, 06/06/2020 ultrasound, 03/14/2020 ultrasound, 10/14/2019 mammogram [facility], [facility]2019 [facility] Real-time ultrasound of the right breast axilla was performed. Jonas scale images of the real-time examination were reviewed. The benign mass in the right axilla is no longer seen. This mass is hyperechoic. Patient reports that she no longer feels the prior palpable abnormality. No significant abnormalities were seen sonographically in the right axilla. IMPRESSION: BENIGN There is no sonographic evidence of malignancy. A 1 year screening mammogram is recommended. This exam was interpreted at Station ID: [id number]. Electronically Signed By: Luisito bella/anthony:03/01/2021 14:19:05 letter sent: Normal Exam Ultrasound BI-RADS: 2 Benign
== END ==
PROVIDERS: Family Provider Family Medicine; PCP Family Medicine; Referring Provider Family Medicine; Visit Provider Family Medicine
DX: R92.8 Other abnormal and inconclusive findings on diagnostic imaging of breast (principal); N64.89 Other specified disorders of breast
CPT/HCPCS: 76882

== ENCOUNTER → 2021-04-29 10:57 | Outpatient (CLI) | payer MEDICARE, MEDICAID, SELFPAY | PROVIDERS: Family Provider Family Medicine; PCP Family Medicine; Visit Provider Physician Assistant | DX: R10.2 Pelvic and perineal pain (principal) | CPT/HCPCS: 87210 ==

== ENCOUNTER → 2022-02-23 09:54 | Outpatient (CLI) | payer MEDICARE, MEDICAID, SELFPAY ==
--- NOTE | 2022-02-23 | DI.MG.S_ITS ---
BILATERAL DIGITAL SCREENING MAMMOGRAM 3D/2D WITH CAD: 02/23/2022 CLINICAL: Routine screening. Family history of breast cancer. Comparison is made to exams dated: 02/02/2021 mammogram, 10/14/2019 mammogram, 12/09/2017 mammogram, and 10/28/2014 mammogram - [facility]. There are scattered areas of fibroglandular density in both breasts (category b / 25%-50% glandular tissue). Current study was also evaluated with a Computer Aided Detection (CAD) system. No significant masses, calcifications, or other findings are seen in either breast. There has been no significant interval change. IMPRESSION: NEGATIVE There is no mammographic evidence of malignancy. A 1 year screening mammogram is recommended. Based on the Tyrer Cuzick model (a risk assessment model) the patient's lifetime risk is 4.7% and her 10 year risk is 2.5%. According to the ACR, ACS, and NCCN guidelines, an annual breast MRI exam along with mammogram is recommended if the patient's lifetime risk is 20% or greater. This exam was interpreted at Station ID: [id number]. NOTE: For mammograms, a report in lay terms will be sent to the patient. Approximately 15% of breast malignancies will not be visualized mammographically. In the management of a palpable breast mass, a negative mammogram must not discourage biopsy of a clinically suspicious lesion. Electronically Signed By: Bob kapoor/anthony:02/23/2022 15:58:16 letter sent: Normal Exam ACR BI-RADS Category 1: Negative 3341F
== END ==
PROVIDERS: Family Provider Family Medicine; PCP Family Medicine; Referring Provider Family Medicine; Visit Provider Family Medicine
DX: Z12.31 Encounter for screening mammogram for malignant neoplasm of breast (principal); Z80.3 Family history of malignant neoplasm of breast
CPT/HCPCS: 77063; 77067

== ENCOUNTER → 2023-03-05 08:26 | Outpatient (CLI) | payer MEDICARE, SELFPAY ==
--- NOTE | 2023-03-05 | DI.MG.S_ITS ---
BILATERAL DIGITAL SCREENING MAMMOGRAM 3D/2D WITH CAD: 03/05/2023 CLINICAL: Routine screening. Family history of breast cancer. Comparison is made to exams dated: 02/23/2022 mammogram, 02/02/2021 mammogram, 10/14/2019 mammogram, and 12/09/2017 mammogram - [facility]. There are scattered areas of fibroglandular density in both breasts (category b / 25%-50% glandular tissue). Current study was also evaluated with a Computer Aided Detection (CAD) system. There are benign post operative findings in the right breast. No significant masses, calcifications, or other findings are seen in either breast. There has been no significant interval change. IMPRESSION: BENIGN There is no mammographic evidence of malignancy. A 1 year screening mammogram is recommended. Based on the Tyrer Cuzick model (a risk assessment model) the patient's lifetime risk is 4.5% and her 10 year risk is 2.5%. According to the ACR, ACS, and NCCN guidelines, an annual breast MRI exam along with mammogram is recommended if the patient's lifetime risk is 20% or greater. This exam was interpreted at Station ID: [id number]. NOTE: For mammograms, a report in lay terms will be sent to the patient. Approximately 15% of breast malignancies will not be visualized mammographically. In the management of a palpable breast mass, a negative mammogram must not discourage biopsy of a clinically suspicious lesion. Electronically Signed By: Kuldip umanzor/anthony:03/05/2023 09:49:08 letter sent: Normal Exam ACR BI-RADS Category 2: Benign Finding(s) 3342F
== END ==
PROVIDERS: Family Provider Family Medicine; PCP Family Medicine; Referring Provider Family Medicine; Visit Provider Family Medicine
DX: Z12.31 Encounter for screening mammogram for malignant neoplasm of breast (principal); Z80.3 Family history of malignant neoplasm of breast
CPT/HCPCS: 77063; 77067

== ENCOUNTER 2023-03-06 15:39 | Emergency (ER) | payer MEDICARE, SELFPAY ==
[2023-03-06 15:41] VITALS: BP 203/102; PULSE 91; RESP 18; TEMP 36; O2SAT 98; BMI 27.8
--- NOTE | 2023-03-06 16:02 | ED.ABDPAIN ---
HPI - Abdominal Pain General Chief Complaint: Abdominal Pain Stated Complaint: upper abd pain after eating Time Seen by Provider: 03/06/23 16:02 Source: patient Mode of arrival: Ambulatory History of Present Illness HPI narrative: 67-year-old female nonsmoker with history of GERD presents with a chief complaint of severe epigastric pain that started after eating few hours prior to her arrival. She states that when it started it was very intense and wrapped around her side to her back but is calmed down a bit over the past few hours. She admits to some nausea but denies any vomiting, fever chills. She denies any chest pain or shortness of breath and has no change in bowel habits. Related Data Home Medications Medication Instructions Recorded Confirmed omeprazole magnesium 20 mg 20 mg PO QDAY ##0 06/28/17 12/13/22 tablet,delayed release (Prilosec OTC) ibuprofen 200 mg tablet (Advil) 200 mg PO Q6H PRN Pain (Scale 02/06/19 12/13/22 Score 1-3) duysxem-iqmvaweelrwjt-savrwpgy 250 1.5 tab PO Q4-6H PRN Pain (Scale 10/30/19 12/13/22 mg-250 mg-65 mg tablet (Excedrin Score 1-3) Migraine) Allergies Allergy/AdvReac Type Severity Reaction Status Date / Time Penicillins [PENICILLINS] Allergy Mild ITCHY Verified 12/13/22 08:25 sulfamethoxazole Allergy Mild itchy all Verified 12/13/22 08:25 [From Bactrim] over under skin trimethoprim [From Bactrim] Allergy Mild itchy all Verified 12/13/22 08:25 over under skin meperidine [MEPERIDINE] Allergy Unknown VOMITING, Verified 12/13/22 08:25 Diarrhea codeine [CODEINE] AdvReac Unknown Nausea Verified 12/13/22 08:25 Review of Systems Review of Systems Narrative: GENERAL: Denies chills, fatigue, malaise, fever, sweats. HEENT: Denies sinus pain, ear pain, sore throat, difficulty swallowing, dizziness. RESPIRATORY: Denies dyspnea, cough, wheezing, hemoptysis, sputum. CARDIOVASCULAR: Denies chest pain, palpitations, orthopnea, edema, GASTROINTESTINAL: See HPI : Denies dysuria, frequency, incontinence, hematuria, urinary retention. MUSCULOSKELETAL: denies weakness, joint pain, or bony pain SKIN: Denies rash, skin lesions, or other NEUROLOGIC: Denies weakness, headache, numbness, change in speech, confusion, seizures, incoordination. PSYCHIATRIC: No concerning psychosocial issues. 12 point review of systems is negative except for those stated above Patient History Medical History Caregiver stress Sebaceous cyst Internal hemorrhoid, bleeding Prolapse of vaginal wall Ache in joint Seborrheic keratosis Intermittent right upper quadrant abdominal pain GERD (gastroesophageal reflux disease) Paresthesia of bilateral legs Vaginal irritation Elevated fasting blood sugar Screening for breast cancer Screening for HPV (human papillomavirus) Cervical cancer screening Hyperlipidemia Grief reaction Anxiety Headache, migraine Hypoglycemia Sinus drainage HTN (hypertension) Intermittent paresthesia of hand and foot Lipoma of back Lipoma of axilla Encounter for screening for cervical cancer Family history of breast cancer in female Segmental and somatic dysfunction of abdomen and other regions Segmental and somatic dysfunction of rib cage Rib pain on right side RLQ abdominal pain Somatic dysfunction of sacroiliac region Somatic dysfunction of left lower extremity Segmental and somatic dysfunction of pelvic region IT band syndrome Hip pain, bilateral History of herpes genitalis Itch of eye, right Lump of skin of back Eczema Cranial somatic dysfunction Cervical somatic dysfunction Somatic dysfunction of abdominal region Low back pain Cervicalgia Right-sided abdominal pain of unknown cause Gastroesophageal reflux disease Surgical History Hx of appendectomy (1959) Hx of tonsillectomy (1959) H/O colonoscopy History of esophagogastroduodenoscopy (EGD) (01/22/07) History of bilateral salpingo-oophorectomy (BSO) Status post endometrial ablation Family History Child Brain tumor Father Bleeding ulcer Cancer Mother Depression Breast cancer Social History household members: friend(s) Smoking Status: Never smoker alcohol intake: current Smoking Status: Never smoker alcohol intake frequency: holidays/special occasions only Substance Use Type: does not use Exam Narrative Exam Narrative: GENERAL: [67] year old patient appears stated age. Well-developed patient, in mild distress. HEAD: Atraumatic. Normocephalic. EYES: Pupils equal round and reactive. Extraocular motions intact. No scleral icterus. No injection or drainage. ENT: Nose without bleeding, purulent drainage. Throat without erythema, tonsillar hypertrophy or exudate. Airway patent. NECK: Trachea midline. Non tender CARDIOVASCULAR: Regular rate and rhythm without murmurs, gallops, or rubs. RESPIRATORY: Clear to auscultation. Breath sounds equal bilaterally. No wheezes, rales, or rhonchi. GASTROINTESTINAL: Abdomen soft, tender in the epigastric, nondistended. EXTREMITIES: No edema or joint tenderness. BACK: Nontender without deformity or crepitance. No flank tenderness. NEURO: AOx3. SKIN: No rash or erythema of visible areas Initial Vital Signs Initial Vital Signs: Vital Signs Temperature 96.8 F L 03/06/23 15:41 Pulse Rate 91 H 03/06/23 15:41 Respiratory Rate 18 03/06/23 15:41 Blood Pressure 203/102 H 03/06/23 15:41 Pulse Oximetry 98 03/06/23 15:41 Oxygen Delivery Method Room Air 03/06/23 15:41 Course Orders Ordered: Discontinued Medications Ondansetron HCl (Ondansetron 4 Mg Odt) 4 mg PO NOW PRN PRN Reason: Nausea And Vomiting Ondansetron HCl (Ondansetron 4 Mg/2 Ml Inj) 4 mg IV NOW PRN PRN Reason: Nausea And Vomiting Vital Signs Vital signs: Vital Signs - 8 hr 03/06/23 15:41 Temperature 96.8 F L Pulse Rate 91 H Respiratory Rate 18 Blood Pressure 203/102 H Pulse Oximetry 98 Oxygen Delivery Method Room Air MDM - Abdominal Pain Lab Data 03/06/23 16:00 03/06/23 16:00 Labs: Lab Results 03/06/23 03/06/23 Range/Units 16:00 17:45 WBC 5.8 (4.5-11.0) X10^3/uL RBC 4.56 (4.0-5.2) X10^6/uL Hgb 13.7 (12.0-16.0) g/dL Hct 39.7 (36-46) % MCV 87.0 (80-100) fL MCH 30.0 (26-34) PG MCHC 34.5 (30-36) % RDW 12.9 (11.6-14.8) % Plt Count 261 (150-400) X10^3/uL Neut % (Auto) 57.5 (50-75) % Lymph % (Auto) 33.3 (25-40) % Bradford % (Auto) 5.7 (3-14) % Eos % (Auto) 2.7 (2-4) % Baso % (Auto) 0.8 (0-2) % Neut # (Auto) 3400 (7597-8867) /uL Lymph # (Auto) 1900 (8230-5252) /uL Bradford # (Auto) 300 (0-900) /uL Eos # (Auto) 200 (0-450) /uL Baso # (Auto) 0 (0-100) /uL Sodium 139 (137-145) mmol/L Potassium 3.6 (3.4-5.1) mmol/L Chloride 104 (98-107) mmol/L Carbon Dioxide 27 (22-32) mmol/L BUN 18 H (7-17) mg/dL Creatinine 0.65 (0.52-1.04) mg/dL Estimated GFR > 60 (>60) mL/min BUN/Creatinine Ratio 27.7 H (6-22) Glucose 128 H (80-110) mg/dL Calcium 9.2 (8.4-10.2) mg/dL Total Bilirubin 0.6 (0.2-1.3) mg/dL AST 29 (14-36) IU/L ALT 33 (<35) IU/L Alkaline Phosphatase 101 (38-126) U/L Total Protein 7.6 (6.3-8.2) g/dL Albumin 4.4 (3.5-5.0) g/dL Globulin 3.2 (1.7-4.1) g/dL Albumin/Globulin Ratio 1.4 (1.0-2.8) Lipase 107 (23-300) U/L Urine Color Yellow Urine Appearance Clear Urine pH 6.5 (4.5-8.0) Ur Specific [place] 1.010 (1.000-1.035) Urine Protein Negative (Negative) Urine Glucose (UA) Negative (Negative) g/dL Urine Ketones Negative (NEGATIVE) Urine Occult Blood Negative (Negative) Urine Nitrate Negative (Negative) Urine Bilirubin Negative (NEGATIVE) Urine Urobilinogen 0.2 (0.2) E.U./dL Ur Leukocyte Esterase 1+ H (NEGATIVE) Urine RBC None seen (0-5/HPF) Urine WBC 1-5/hpf (0-5/HPF) Ur Squamous Epith Cells 1-5 /hpf (0-5/HPF) Urine Bacteria Few (2-10) H (None) Ur Culture Indicated? Specimen cultured MDM Narrative Medical decision making narrative: [67] year old patient presents with episode of epigastric pain after eating Multiple etiologies for patient's symptoms considered including, but not limited to: [Gallbladder disease versus pancreatitis versus esophageal spasm versus other] Prior Charts reviewed in our EMR Primary Historian: patient Labs reviewed and interpreted by myself: No abnormalities in LFTs, bilirubin or lipase, no leukocytosis or left shift Imaging reviewed: Abdominal ultrasound without acute cholecystitis or stones Patient with reassuring history and physical exam and isolated epigastric pain after eating. It happened immediately after eating some almonds and has gradually course of the day. No nausea or vomiting, no fever or jaundice, patient pain controlled tolerating orals, labs without any notable findings and abdominal ultrasound unremarkable. We did discuss the utility in performing a further workup with an abdomen and pelvis CT with IV contrast but agree to hold off as her symptoms have improved greatly and labs and ultrasound unremarkable. She understands it return precautions include worsening or more persistent pain, vomiting, fever or chills or other concerning symptoms Findings and discharge diagnosis discussed with patient/family followed by verbalization of understanding Return precautions discussed with patient/family whom verbalize understanding of diagnosis and plan Discharge Plan Departure Patient Disposition: Home Clinical Impression: Abdominal pain, acute, epigastric Instructions: DI for Epigastric Pain Activity Restrictions/Additional Instructions: *You have been diagnosed with [epigastric pain] as we discussed your history and physical exam as well as labs and imaging are reassuring and there is no evidence of a surgical problem that requires a specific or immediate intervention *What to do: *Please continue to take your regular medications as directed. [ ] New medication prescriptions sent to your pharmacy: [ ] [ ] New medication written as a paper prescription [ ] No new medications given *Please follow up with your primary care provider in 2-3 days, call for an appointment. Let them know you were seen in the Emergency Department and that we ask that you be seen in follow up. We will electronically transmit a record of today's note if your PCP is in our system *If you do not have a primary care provider please contact the [facility] Resource line at [phone]. They will ask some questions about your medical history and help get you set up with a doctor in the community. *Return to Emergency Department if you should have any new, worsening or concerning symptoms, such as [fever greater than 101 F, shaking chills, worsening pain, persistent vomiting or other bothersome symptoms] Prescriptions: No Action omeprazole magnesium [Prilosec OTC] 20 MG tablet,delayed release (DR/EC) 20 mg PO QDAY Qty: 0 ibuprofen [Advil] 200 mg tablet 200 mg PO Q6H PRN (Reason: Pain (Scale Score 1-3)) Excedrin Migraine 250-250-65 mg Tablet 1.5 tab PO Q4-6H PRN (Reason: Pain (Scale Score 1-3)) Referrals: Abdi Dyer DO [Primary Care Provider] - Stand Alone Forms: Patient Portal/API
--- NOTE | 2023-03-06 16:13 | DI.US.S_ITS ---
PROCEDURE: US ABDOMEN LIMITED INDICATIONS: POST PRANDIAL EPIGASTRIC PAIN TECHNIQUE: Real-time scanning was performed of the abdominal, with image documentation. COMPARISON: [facility], , US ABDOMEN LIMITED, 07/29/2019, 15:18. FINDINGS: Liver: Liver is normal in size and homogeneous in echotexture. 14.7 cm. Hepatic cysts measuring 8.7 cm and 1.9 cm. Thin septations. Gallbladder: Nondilated. No stones or sludge. Normal gallbladder wall thickness. No pericholecystic fluid. Negative sonographic Reynolds's sign. Biliary ducts: Intrahepatic bile ducts are non-dilated. Extrahepatic bile duct caliber measures 5 mm. Normal is 6-7 mm or less in diameter, or 10 mm or less post-cholecystectomy. Pancreas: Suboptimally visualized. Miscellaneous: No free abdominal fluid. IMPRESSION: No acute cholecystitis. No gallstones. Dictated by: Kuldip Osei M.D. on 03/06/2023 at 18:05 Approved by: Kuldip Osei M.D. on 03/06/2023 at 18:11
[2023-03-06 16:15] LABS: Add Manual Diff / Slide Review NO; Basophils Absolute Auto 0 /uL (0-100); Basophils Percent Auto 0.8 % (0-2); Eosinophils Absolute Auto 200 /uL (0-450); Eosinophils Percent Auto 2.7 % (2-4); Hematocrit 39.7 % (36-46); Hemoglobin 13.7 g/dL (12.0-16.0); Lymphocytes Absolute Auto 1900 /uL (1100-4500); Lymphocytes Percent Auto 33.3 % (25-40); Mean Corpuscular HGB Conc 34.5 % (30-36); Monocytes Absolute Auto 300 /uL (0-900); Monocytes Percent Auto 5.7 % (3-14); Neutrophils Absolute Auto 3400 /uL (1500-7000); Neutrophils Percent Auto 57.5 % (50-75); Platelet Count 261 X10^3/uL (150-400); Red Blood Cell Count 4.56 X10^6/uL (4.0-5.2); Red Cell Distribution Width 12.9 % (11.6-14.8); White Blood Cell Count 5.8 X10^3/uL (4.5-11.0)
[2023-03-06 16:26] LABS: Alanine Aminotransferase 33 IU/L (<35); Albumin 4.4 g/dL (3.5-5.0); Albumin Globulin Ratio 1.4 (1.0-2.8); Alkaline Phosphatase 101 U/L (38-126); Aspartate Aminotransferase 29 IU/L (14-36); BUN Creatinine Ratio 27.7 (6-22); Bilirubin Total 0.6 mg/dL (0.2-1.3); Blood Urea Nitrogen 18 mg/dL (7-17); Calcium 9.2 mg/dL (8.4-10.2); Carbon Dioxide 27 mmol/L (22-32); Chloride 104 mmol/L (98-107); Estimated Glomerular Filt Rate > 60 mL/min (>60); Globulin 3.2 g/dL (1.7-4.1); Glucose 128 mg/dL (80-110); HEMOLYSIS < 15 (0-50); Lipase 107 U/L (23-300); Potassium 3.6 mmol/L (3.4-5.1); Sodium 139 mmol/L (137-145); Total Protein 7.6 g/dL (6.3-8.2)
[2023-03-06 17:56] LABS: Appearance Urine UA CLEAR; Bilirubin Urine UA NEGATIVE (NEGATIVE); Color Urine UA YELLOW; Glucose Urine UA NEGATIVE (Negative); Ketones Urine UA NEGATIVE (NEGATIVE); Leukocyte Esterase Urine UA 1+ (NEGATIVE); Nitrite Urine UA NEGATIVE (Negative); Occult Blood Urine UA NEGATIVE (Negative); Protein Urine UA NEGATIVE (Negative); Urobilinogen Urine UA 0.2 E.U./dL (0.2)
[2023-03-06 17:57] LABS: pH Urine UA 6.5 (4.5-8.0)
[2023-03-06 18:11] LABS: Bacteria Urine Few (2-10); Culture Indicated Urine Specimen Cultured; RBC Urine None Seen (0-5/HPF); Squamous Epithelial Cell Urine 1-5 /HPF (0-5/HPF); WBC Urine 1-5/HPF (0-5/HPF)
[2023-03-06 18:47] VITALS: PULSE 89; RESP 18; O2SAT 95
== END 2023-03-06 18:47 | disposition home or self-care (01) ==
PROVIDERS: Emergency Provider Emergency Medicine; Family Provider Family Medicine; PCP Family Medicine
DX: R10.13 Epigastric pain (principal)
CPT/HCPCS: 36415; 76705; 80053; 81003; 81015; 83690; 85025; 87086; 93005; 93010; 99283

== ENCOUNTER 2023-06-17 07:47 | Day surgery (SDC) | payer MEDICARE, SELFPAY ==
[2023-06-11 13:40] VITALS: BMI 28.3
[2023-06-17] VITALS (13 sets, daily range): BP systolic 118–181; BP diastolic 70–94; PULSE 76–94; RESP 12–18; TEMP 35.8–36.6; O2SAT 92–98; BMI 28.3
[2023-06-17] MEDS: LACTATED RINGERS 1,000 ML 21 ML IV ×2 (08:26→10:18)
--- NOTE | 2023-06-17 08:34 | PM.PREOP ---
Pre-operative Note Interval Note History & Physical reviewed/Exam performed by Physician: Yes Changes to H&P: No H&P completed within 30 days and has changed as indicated here:: 06/06/23
[2023-06-17] MEDS: CEFAZOLIN 2 GM/100 ML PREMIX 100 ML IV (08:41)
[2023-06-17] MEDS: ACETAMINOPHEN IV 1,000 MG/100 ML VIAL 400 MG IV (08:45)
[2023-06-17] MEDS: BUPIVACAINE 0.25% (PF) 30 ML, EPINEPHrine 0.15 MG INJ (09:05)
--- NOTE | 2023-06-17 09:09 | SUR.OPER ---
Supine on padded OR bed, head on pillow, arms secured on padded arm boards at <90 degrees abduction, legs uncrossed, safety belt at thigh, tape over blanket over lower legs.
--- NOTE | 2023-06-17 10:17 | P.OP_ITS ---
Operative Date/Time/Diagnoses Date of procedure: 06/17/23 Time of procedure: 10:17 Pre-op diagnosis: Symptomatic cystocele and rectocele Post-op diagnosis: same Procedure & Clinicians Procedure: Procedures Operation Date: 06/17/23 09:15 Actual Procedure Side Surgeon p Anterior/Posterior Repair Criselda Medina MD Indications: Symptomatic cystocele and rectocele in a 68-year-old Surgeon: Criselda Medina Sales Floor Associate: Dorcas Donnelly Anesthesia Type: General and Local Operative Notes Findings: Third-degree cystocele Third-degree rectocele Enlarged genital hiatus Closure Type: primary Specimen(s): none Applied: catheter (Oliveira to continuous drainage) and other (Betadine moistened vaginal pack placed) Estimated blood loss (mL): 50 Blood products transfused: none Procedure in detail: The patient was taken to the operating room where she was placed in the dorsal supine position. After adequate general endotracheal anesthesia was achieved, she was placed in the dorsal lithotomy position, and prepped and draped in the usual sterile fashion. A time-out was performed. 2 narrow Allis clamps were placed at the apex of the cystocele. 6 mL of half percent Marcaine with epinephrine were injected and an incision was made with a #10 blade between the 2 Allis clamps. Wide Allis clamps were placed on the midline of the cystocele approximately 5. 6 cc of 0.5% Marcaine with epinephrine were injected submucosally on either side of the midline. The mucosa was undermined using the Metzenbaum scissors and the mucosa incised in the midline, moving the wide Allis clamps to the edges of the mucosa. The mucosa was dissected off the underlying fascia using an open moistened Ray-Alireza and a #10 blade. The fascia was reapproximated with 0 Vicryl with a series of horizontal mattress sutures. The excess vaginal mucosa was excised. The mucosa was closed using simple interrupted sutures with 2-0 Vicryl including the underlying fascia to close the space. The weighted speculum was removed from the vagina. Narrow Allis clamps were placed at the mucocutaneous junction at the introitus. 6 mL of half percent Marcaine with epinephrine were injected. An incision was made with a #10 blade between the 2 Allis clamps, and a triangular piece of skin and underlying subcutaneous tissue was removed. Allis clamps were placed in the midline of the rectocele. 10 mL of half percent Marcaine with epinephrine were injected submucosally on either side of the midline. The mucosa was undermined using the Metzenbaum scissors and the mucosa incised in the midline, moving the wide Allis clamps to the mucosal edges. The underlying fascia was dissected off of the mucosa using an open moistened Ray-Alireza and a #10 blade. The fascia was reapproximated using 0 Vicryl with a series of horizontal mattress sutures. The excess vaginal mucosa was excised. The mucosa was closed using a series of simple interrupted sutures with 2-0 Vicryl including the underlying fascia to close the space. On the perineum 0 Vicryl was used to reapproximate the levator muscle. The subcutaneous layer was closed with 2-0 Vicryl. The skin was closed with 2-0 chromic with simple interrupted sutures. Hemostasis was achieved. A Betadine moistened vaginal pack was placed into the vagina. A rectal exam was done and there were no sutures palpable in the rectum. The urine was clear. Sponge, lap, and instrument counts were correct x-2. The patient tolerated the procedure well, was taken to PACU in stable condition. Complications: none Post-operative Condition: stable Disposition: PACU Plan for aftercare: To acute care after recovery
--- NOTE | 2023-06-17 10:37 | SUR.PHASEI ---
Report called to
--- NOTE | 2023-06-17 10:48 | SUR.PHASEI ---
Patient transferred to the floor with her jacket and belongings bag.
[2023-06-17] MEDS: ACETAMINOPHEN 325 MG TABLET 650 MG PO (11:31)
[2023-06-17] MEDS: PANTOPRAZOLE DR 20 MG TABLET PO (14:30)
[2023-06-17] MEDS: IBUPROFEN 600 MG TABLET PO ×2 (16:38→22:55)
[2023-06-17] MEDS: DOCUSATE 100 MG CAPSULE 200 MG PO (20:11)
[2023-06-18] MEDS: IBUPROFEN 600 MG TABLET PO ×2 (04:31→09:52)
[2023-06-18 04:46] VITALS: BP 164/86; PULSE 66; RESP 17; TEMP 36.3; O2SAT 96
[2023-06-18 05:06] LABS: Add Manual Diff / Slide Review NO; Basophils Absolute Auto 0 /uL (0-100); Basophils Percent Auto 0.1 % (0-2); Eosinophils Absolute Auto 0 /uL (0-450); Eosinophils Percent Auto 0.1 % (2-4); Hematocrit 33.5 % (36-46); Hemoglobin 11.8 g/dL (12.0-16.0); Lymphocytes Absolute Auto 1600 /uL (1100-4500); Lymphocytes Percent Auto 25.3 % (25-40); Mean Corpuscular HGB Conc 35.3 % (30-36); Mean Corpuscular Hemoglobin 30.9 PG (26-34); Mean Corpuscular Volume 87.4 fL (80-100); Monocytes Absolute Auto 500 /uL (0-900); Monocytes Percent Auto 7.5 % (3-14); Neutrophils Absolute Auto 4200 /uL (1500-7000); Platelet Count 235 X10^3/uL (150-400); Red Blood Cell Count 3.83 X10^6/uL (4.0-5.2); Red Cell Distribution Width 12.8 % (11.6-14.8); White Blood Cell Count 6.3 X10^3/uL (4.5-11.0)
--- NOTE | 2023-06-18 07:30 | PC.NURSE ---
Patient's pain well controlled with Ibuprofen. Vaginal packing and urinary catheter removed at 0600, pad with small amount of bloody drainage. Patient DTV.
[2023-06-18 09:41] VITALS: BP 153/81; PULSE 65; RESP 16; TEMP 36.2; O2SAT 98
--- NOTE | 2023-06-18 09:44 | PC.NURSE ---
Post residual void was 26 per this TRANSCRIPT CLERK
[2023-06-18] MEDS: DOCUSATE 100 MG CAPSULE 200 MG PO (09:52)
--- NOTE | 2023-06-18 13:39 | CM.DANOTE ---
Patient is a 68 yo female who was admitted on 06/17/23 for Cystocele/Rectocele. Pt has [facility] for insurance and her PCP is Dr. Abdi Dyer. EMR was reviewed. Per OBGYN, pt with planned surgical intervention and tolerated well and pain seems controlled and pt's cordero discontinued and voiding independently and medically stable to discharge today with outpt f/u. Patient lives in [place] with friends/roommates and is active and independent at baseline and denies any SNF or HH hx and preference is to d/c home today via friend POV and confirms she has assist and support from family and friends at discharge. Pt does not anticipate any needs and is glad to be going home today. Plan: Patient to discharge home today via friend POV and outpt f/u and no further SW needs at this time. MUNA Jansen Discharge Planning/Care Management Pre-Anesthesia Assessment Start: 06/11/23 13:40 Freq: Status: Active Protocol: Document 06/11/23 13:40 CAB (Rec: 06/11/23 13:44 CAB [id number]) Pre-Anesthesia Assessment Patient Information Reviewed Via Chart Review Seen Specialist in Last 12 Months Yes Specialist Seen Emergency,Transporter Radiology Primary Language Divehi Continuous Churn Buttermaker Required No Height 157.48 cm Weight 70.307 kg Body Mass Index (BMI) 28.3 Hx Anesthesia Reactions No: hard to wake up Hx Family Anesthesia Reaction No Hx Malignant Hyperthermia No Hx Blood Transfusions No Hx Blood Transfusion Reaction No Anesthesia Review Requested No Precision Machinist No alcohol intake current alcohol intake frequency holidays/special occasions only Smoking Status Never smoker Substance Use Type does not use Does patient have HILL/SOB No Hx Sleep Apnea No CPAP/BIPAP use not prescribed Currently Taking a Beta Ajit No Hx Chest Pain No Hx SOB No Hx Syncope or Dizziness No Anti-Coagulant Therapy No Cardiac Testing No Hx Pacemaker/ICD No Pacemaker Rep Required? No Cardiac Clearance Received Not Applicable Gastrointestinal Symptoms Reflux Urinary Catheter Present No Hx Urinary Self Catheterization No Diabetes No Patient No Lactating No Presence of External or Internal Medical Yes: Pessary Devices Marital Status Lives With friend(s) Patient Discharge Plan Description Return Home Advance Directives? No
--- NOTE | 2023-06-18 14:17 | PC.NURSE ---
Patient's first void after cordero removal this morning was 200cc then PVR was less than 25cc. Second void of the morning was 500cc with less than 75cc PVR. These numbers communicated to Dr. Medina. Patient without complaints. Scant drainage on pad. Ambulating well in room with her daughter at bedside. Discharge teaching completed by muna BLANCO.
--- NOTE | 2023-06-26 22:35 | P.DS_ITS ---
History of Present Illness History of Present Illness Date Patient Seen: 06/18/23 Time Patient Seen: 11:00 Chief complaint: OPB Narrative: Patient is a 68-year-old who underwent an anterior and posterior repair. Discharge Providers Provider Discharge Date: 06/18/23 Primary care physician: Abdi Dyer DO Discharge provider: Criselda Medina MD Summary Hospital Course Discharge Diagnosis: Symptomatic cystocele and rectocele Anterior/posterior repair Hospital Course: Patient is a 68-year-old who presented on June 17, 2023 for a scheduled anterior and posterior repair. She underwent this procedure without complication. On postop day # 1 her vaginal packing and Oliveira catheter were removed. She was able to void with very low postvoid residuals. Her bleeding was minimal. She was tolerating a diet. No nausea or vomiting. Her pain was well controlled. She was ambulating without assistance. Status at Discharge Cognitive/behavioral status at discharge: oriented Functional status at discharge: independent ambulation Overall status at discharge: patient is progressing back to baseline Time Spent with Patient Time spent: Less than 30 minutes Exam Vital Signs (past 8 hours): Oxygen Delivery Method Room Air Oxygen Flow Rate 0 Narrative Exam Narrative: Generally: Patient is sitting up in bed, no acute distress Lungs: Clear to auscultation bilaterally Cardiovascular: Regular rate and rhythm Abdomen: Soft and flat. Perineum: Intact, minimal old blood Extremities: No edema, negative Homans Objective Labs 06/18/23 04:25 [facility] Medical History (Updated 06/06/23 @ 15:11 by Criselda Medina MD) Caregiver stress Sebaceous cyst Internal hemorrhoid, bleeding Ache in joint Seborrheic keratosis Intermittent right upper quadrant abdominal pain GERD (gastroesophageal reflux disease) Paresthesia of bilateral legs Vaginal irritation Elevated fasting blood sugar Hyperlipidemia Grief reaction Anxiety Headache, migraine Hypoglycemia Sinus drainage HTN (hypertension) Intermittent paresthesia of hand and foot Lipoma of back Lipoma of axilla Encounter for screening for cervical cancer Family history of breast cancer in female Segmental and somatic dysfunction of abdomen and other regions Segmental and somatic dysfunction of rib cage Rib pain on right side RLQ abdominal pain Somatic dysfunction of sacroiliac region Somatic dysfunction of left lower extremity Segmental and somatic dysfunction of pelvic region IT band syndrome Hip pain, bilateral History of herpes genitalis Itch of eye, right Lump of skin of back Eczema Cranial somatic dysfunction Cervical somatic dysfunction Somatic dysfunction of abdominal region Low back pain Cervicalgia Right-sided abdominal pain of unknown cause Gastroesophageal reflux disease Surgical History (Updated 06/11/23 @ 13:41 by Bbobi Turk RN) History of surgery (04/13/20) Hx of appendectomy (1959) Hx of tonsillectomy (1959) H/O colonoscopy History of esophagogastroduodenoscopy (EGD) (01/22/07) History of bilateral salpingo-oophorectomy (BSO) Status post endometrial ablation Family History Child Brain tumor Father Bleeding ulcer Cancer Mother Depression Breast cancer Social History household members: friend(s) Smoking Status: Never smoker alcohol intake: current Discharge Assessment & Plan Assessment and Plan Assessment: Postop day # 1 status post anterior and posterior repair doing very well Plan of Treatment: Discharge to home Follow-up 2 weeks Discharge Plan Discharge Plan Patient Disposition: Home Provider Discharge Comment: Call with fever, chills, or bleeding vaginally more than spotting to light Ibuprofen 600 mg every 6 hours as needed for pain Stool softeners until bowel returns to normal Discharge orders & Medications Discharge Orders: Discharge (Order); Ordered 06/18/23 Ordered By: Criselda Medina Prescriptions: New tramadol 50 mg tablet 50 mg PO Q6H PRN (Reason: pain) Qty: 10 0RF Continued omeprazole magnesium [Prilosec OTC] 20 MG tablet,delayed release (DR/EC) 20 mg PO QDAY Qty: 0 ibuprofen [Advil] 200 mg tablet 200 mg PO Q6H PRN (Reason: Pain (Scale Score 1-3)) Excedrin Migraine 250-250-65 mg Tablet 1.5 tab PO Q4-6H PRN (Reason: Pain (Scale Score 1-3)) Follow up/Referrals: Criselda Medina MD [Physician] - (Postop appointments already scheduled) Abdi Dyer DO [Primary Care Provider] - Diet/Activity/Treatments Diet: Regular Activity: No heavy lifting Nothing more than a gal of milk or 8 lb Nothing in the vagina Skin/Wound/Dressing Care Report to your healthcare provider any signs of infection, such as:: chills, fever, increased pain and unusual drainage Visit Report/Discharge Packet Instructions: DI for Cystocele and Rectocele Repair, DI for Prescription Opioid Use, Stool Softeners, Tramadol Stand Alone Forms: Patient Portal/API, Surgery Discharge Discharge Data Primary Care Provider: Abdi Dyer Attending Provider: Criselda Medina VTE Deep Vein Thrombosis/Pulmonary Embolism Present on Admission: No
== END 2023-06-18 13:55 | disposition home or self-care (01) ==
LOC: OR 07:52 → AC 10:33
PROVIDERS: Family Provider Family Medicine; PCP Family Medicine; Referring Provider Obstetrics & Gynecology; Visit Provider Obstetrics & Gynecology
PROC: (CPT 57260; principal; 2023-06-17 09:15)
DX: N81.10 Cystocele, unspecified (principal); N81.6 Rectocele
CPT/HCPCS: 57260; 36415; 82962; 85025; J0136; J0171; J0690; J1100; J1885; J2405; J2704; J3010

== ENCOUNTER → 2023-07-31 11:13 | Outpatient (CLI) | payer MEDICARE, SELFPAY ==
[2023-06-17 10:34] VITALS: BMI 28.3
[2023-07-31 12:58] LABS: Appearance Urine UA CLEAR; Bilirubin Urine UA NEGATIVE (NEGATIVE); Color Urine UA YELLOW; Glucose Urine UA NEGATIVE (Negative); Ketones Urine UA NEGATIVE (NEGATIVE); Leukocyte Esterase Urine UA 1+ (NEGATIVE); Nitrite Urine UA NEGATIVE (Negative); Occult Blood Urine UA TRACE-INTACT (Negative); Protein Urine UA TRACE (Negative); Urobilinogen Urine UA 0.2 E.U./dL (0.2)
[2023-07-31 13:09] LABS: pH Urine UA 5.5 (4.5-8.0)
[2023-07-31 13:10] LABS: Bacteria Urine Few (2-10); Culture Indicated Urine Specimen Cultured; RBC Urine 1-5/HPF (0-5/HPF); Squamous Epithelial Cell Urine None Seen (0-5/HPF); Transitional Epi Cells Urine 0-1/HPF (0-5/HPF); Urine Volume 10mL (spun); WBC Urine 10-30/HPF (0-5/HPF)
== END ==
PROVIDERS: Family Provider Family Medicine; PCP Family Medicine; Visit Provider Obstetrics & Gynecology
DX: R30.0 Dysuria (principal); Z98.890 Other specified postprocedural states
CPT/HCPCS: 81001; 87077; 87086; 87186

== ENCOUNTER → 2023-09-02 17:34 | Outpatient (CLI) | payer MEDICARE, SELFPAY ==
[2023-06-17 10:34] VITALS: BMI 28.3
[2023-09-02 17:54] LABS: Appearance Urine UA CLEAR; Bilirubin Urine UA NEGATIVE (NEGATIVE); Color Urine UA YELLOW; Glucose Urine UA NEGATIVE (Negative); Ketones Urine UA NEGATIVE (NEGATIVE); Leukocyte Esterase Urine UA NEGATIVE (NEGATIVE); Nitrite Urine UA NEGATIVE (Negative); Occult Blood Urine UA NEGATIVE (Negative); Protein Urine UA NEGATIVE (Negative); Specific Gravity Urine UA >=1.030 (1.000-1.035); Urobilinogen Urine UA 0.2 E.U./dL (0.2)
[2023-09-02 17:57] LABS: pH Urine UA 5.5 (4.5-8.0)
[2023-09-02 18:04] LABS: Bacteria Urine Few (2-10); Culture Indicated Urine Cult Not Indicated; Mucus Urine 2+ (Negative); RBC Urine 1-5/HPF (0-5/HPF); Squamous Epithelial Cell Urine 1-5 /HPF (0-5/HPF); Urine Volume 10mL (spun); WBC Urine 1-5/HPF (0-5/HPF)
== END ==
PROVIDERS: Family Provider Family Medicine; PCP Family Medicine; Referring Provider Obstetrics & Gynecology; Visit Provider Obstetrics & Gynecology
DX: R30.0 Dysuria (principal)
CPT/HCPCS: 81001

== ENCOUNTER → 2023-11-15 14:25 | Outpatient (CLI) | payer MEDICARE, SELFPAY ==
[2023-06-17 10:34] VITALS: BMI 28.3
== END ==
PROVIDERS: Family Provider Family Medicine; PCP Family Medicine; Visit Provider Obstetrics & Gynecology
DX: R30.0 Dysuria (principal)
CPT/HCPCS: 87077; 87086; 87186

== ENCOUNTER → 2023-11-26 12:05 | Outpatient (CLI) | payer MEDICARE, SELFPAY ==
[2023-06-17 10:34] VITALS: BMI 28.3
[2023-11-26 13:04] LABS: Hemoglobin A1C% w Est Avg Glu 5.6 % (4.0-6.0)
== END ==
LOC: LAB 12:06
PROVIDERS: Family Provider Family Medicine; PCP Family Medicine; Referring Provider Family Medicine; Visit Provider Family Medicine
DX: R73.09 Other abnormal glucose (principal)
CPT/HCPCS: 36415; 83036

== ENCOUNTER → 2024-03-05 06:50 | Outpatient (CLI) | payer MEDICARE, SELFPAY ==
[2023-06-17 10:34] VITALS: BMI 28.3
[2024-03-05 07:51] LABS: Add Manual Diff / Slide Review NO; Basophils Absolute Auto 0 /uL (0-100); Basophils Percent Auto 0.8 % (0-2); Eosinophils Absolute Auto 200 /uL (0-450); Hematocrit 41.7 % (36-46); Hemoglobin 14.1 g/dL (12.0-16.0); Lymphocytes Absolute Auto 1900 /uL (1100-4500); Lymphocytes Percent Auto 37.3 % (25-40); Mean Corpuscular HGB Conc 33.8 % (30-36); Mean Corpuscular Volume 88.8 fL (80-100); Monocytes Absolute Auto 300 /uL (0-900); Monocytes Percent Auto 6.8 % (3-14); Neutrophils Absolute Auto 2600 /uL (1500-7000); Neutrophils Percent Auto 52.1 % (50-75); Platelet Count 264 X10^3/uL (150-400); Red Blood Cell Count 4.69 X10^6/uL (4.0-5.2); Red Cell Distribution Width 12.9 % (11.6-14.8); White Blood Cell Count 5.1 X10^3/uL (4.5-11.0)
[2024-03-05 08:13] LABS: Alanine Aminotransferase 37 IU/L (<35); Albumin 4.5 g/dL (3.5-5.0); Albumin Globulin Ratio 1.8 (1.0-2.8); Alkaline Phosphatase 101 U/L (38-126); Aspartate Aminotransferase 32 IU/L (14-36); BUN Creatinine Ratio 19.5 (6-22); Bilirubin Total 0.8 mg/dL (0.2-1.3); Blood Urea Nitrogen 16 mg/dL (7-17); Calcium 9.2 mg/dL (8.4-10.2); Carbon Dioxide 28 mmol/L (22-32); Chloride 104 mmol/L (98-107); Cholesterol 218 mg/dL (140-199); Estimated Glomerular Filt Rate > 60 mL/min (>60); Globulin 2.5 g/dL (1.7-4.1); Glucose 120 mg/dL (80-110); HDL Cholesterol 39 mg/dL (40-60); HEMOLYSIS < 15 (0-50); LDL Cholesterol Calculated 147 mg/dL (<100); Potassium 4.3 mmol/L (3.4-5.1); Sodium 139 mmol/L (137-145); Triglycerides 158 mg/dL (35-150)
[2024-03-05 08:41] LABS: TSH w/ Reflex to FT4 4.64 uIU/mL (0.47-4.68)
[2024-03-05 09:00] LABS: Vitamin B12 444 pg/mL (239-931)
== END ==
PROVIDERS: Family Provider Family Medicine; PCP Family Medicine; Referring Provider Family Medicine; Visit Provider Family Medicine
DX: G47.19 Other hypersomnia (principal); E78.5 Hyperlipidemia, unspecified; D50.9 Iron deficiency anemia, unspecified; R06.81 Apnea, not elsewhere classified; E78.2 Mixed hyperlipidemia
CPT/HCPCS: 36415; 80053; 80061; 82306; 82607; 84443; 85025

== ENCOUNTER → 2024-03-06 08:29 | Outpatient (CLI) | payer MEDICARE, SELFPAY ==
[2023-06-17 10:34] VITALS: BMI 28.3
--- NOTE | 2024-03-06 08:31 | DI.MG.S_ITS ---
BILATERAL DIGITAL SCREENING MAMMOGRAM 3D/2D WITH CAD: 03/06/2024 CLINICAL: Routine screening. Family history of breast cancer. Comparison is made to exams dated: 03/05/2023 mammogram, 02/23/2022 mammogram, and 02/02/2021 mammogram - [facility]. There are scattered areas of fibroglandular density (category b / 25%-50% glandular tissue). Current study was also evaluated with a Computer Aided Detection (CAD) system. There are benign post operative findings in the right breast. No significant masses, calcifications, or other findings are seen in either breast. There has been no significant interval change. IMPRESSION: BENIGN There is no mammographic evidence of malignancy. A 1 year screening mammogram is recommended. Based on the Tyrer Cuzick model (a risk assessment model) the patient's lifetime risk is 4.2% and her 10 year risk is 2.5%. According to the ACR, ACS, and NCCN guidelines, an annual breast MRI exam along with mammogram is recommended if the patient's lifetime risk is 20% or greater. This exam was interpreted at Station ID: [id number]. NOTE: For mammograms, a report in lay terms will be sent to the patient. Approximately 15% of breast malignancies will not be visualized mammographically. In the management of a palpable breast mass, a negative mammogram must not discourage biopsy of a clinically suspicious lesion. Electronically Signed By: Luisito bella/anthony:03/06/2024 12:16:18 letter sent: Normal Exam ACR BI-RADS Category 2: Benign
== END ==
PROVIDERS: Family Provider Family Medicine; PCP Family Medicine; Referring Provider Family Medicine; Visit Provider Family Medicine
DX: Z12.31 Encounter for screening mammogram for malignant neoplasm of breast (principal); Z80.3 Family history of malignant neoplasm of breast
CPT/HCPCS: 77063; 77067

== ENCOUNTER → 2024-06-09 11:15 | Outpatient (CLI) | payer MEDICARE, SELFPAY ==
[2024-03-31 09:54] VITALS: BMI 28.3
[2024-06-09 13:12] LABS: Appearance Urine UA SL CLOUDY; Bilirubin Urine UA NEGATIVE (NEGATIVE); Color Urine UA YELLOW; Glucose Urine UA NEGATIVE (Negative); Ketones Urine UA NEGATIVE (NEGATIVE); Leukocyte Esterase Urine UA 3+ (NEGATIVE); Nitrite Urine UA NEGATIVE (Negative); Occult Blood Urine UA 3+ (Negative); Protein Urine UA NEGATIVE (Negative); Specific Gravity Urine UA <=1.005 (1.000-1.035); Urobilinogen Urine UA 0.2 E.U./dL (0.2)
[2024-06-09 14:14] LABS: Urine Volume 10mL (spun)
[2024-06-09 14:15] LABS: Amorphous Sediment Urine 1+; Bacteria Urine Moderate (10-30); Culture Indicated Urine Specimen Cultured; RBC Urine 5-10/HPF (0-5/HPF); Squamous Epithelial Cell Urine 0-1 /HPF (0-5/HPF); WBC Urine 10-30/HPF (0-5/HPF)
== END ==
PROVIDERS: Family Provider Family Medicine; PCP Family Medicine; Referring Provider Obstetrics & Gynecology; Visit Provider Obstetrics & Gynecology
DX: R30.0 Dysuria (principal); R31.9 Hematuria, unspecified
CPT/HCPCS: 81001; 87077; 87086

== ENCOUNTER → 2024-08-28 12:29 | Outpatient (CLI) | payer MEDICARE, SELFPAY ==
[2024-03-31 09:54] VITALS: BMI 28.3
[2024-08-28 13:01] LABS: Estimated Glomerular Filt Rate > 60 mL/min (>60)
== END ==
PROVIDERS: Family Provider Family Medicine; PCP Family Medicine; Referring Provider Family Medicine; Visit Provider Family Medicine
DX: R10.9 Unspecified abdominal pain (principal)
CPT/HCPCS: 36415; 82565

== ENCOUNTER → 2024-08-29 12:36 | Outpatient (CLI) | payer MEDICARE, SELFPAY ==
[2024-03-31 09:54] VITALS: BMI 28.3
--- NOTE | 2024-08-29 12:38 | DI.CT.S_ITS ---
PROCEDURE: CT ABDOMEN PELVIS W CON INDICATIONS: right sided abdominal pain TECHNIQUE: After the administration of intravenous contrast, axial sections acquired from the lung bases to the pubic symphysis. Coronal and sagittal reformats were performed. For radiation dose reduction, the following was used: automated exposure control, adjustment of mA and/or kV according to patient size. COMPARISON: [facility], CT, ABDOMEN/PELVIS WITH CONTRAST, 07/17/2017, 11:10. FINDINGS: Image quality: Diagnostic. Lower Chest: No significant findings. ABDOMEN: Liver: Severe hepatic steatosis is again seen. Multiple hepatic cysts are again seen now measures up to 7.1 x 8.3 cm in size compared to 7.2 x 5.6 cm on previous study in 2018. Possible hemangioma in right lobe of liver are also seen other evaluation is limited due to timing of contrast. Gallbladder: No radiopaque gallstones or wall thickening. Biliary ducts: No biliary dilation. Pancreas: No ductal dilation. Spleen: Size is within normal limits. Small splenule is are seen. Adrenal Glands: No adrenal nodules. Kidneys and Ureters: Mild prominence of right renal pelvis is again seen extending to the level of right UPJ. No obstructing renal stones. No left-sided hydronephrosis or hydroureter. No solid mass. No complex renal cystic lesion which requires follow up. Stomach and Bowel: There is no bowel obstruction. No abnormal bowel wall thickening or mesenteric fat stranding. No abscess collection. No free fluid or free air. Sigmoid diverticulosis without CT evidence of acute diverticulitis. Peritoneum: No abnormal intraperitoneal fluid. No free air. Ventral Wall: No significant ventral hernia. Abdominal Nodes: No retroperitoneal or mesenteric adenopathy by size criteria. Vessels: Aorta and inferior vena cava are normal in size. PELVIS: Pelvic Organs: Unremarkable. Bladder: No bladder wall thickening, accounting for underdistention. Pelvic Nodes: No enlarged lymph nodes. Miscellaneous: No inguinal hernias are seen. Bones: No aggressive osseous abnormality. IMPRESSION: 1. Moderate to severe hepatic steatosis. Interval increase in size of patient's known left hepatic cyst as above. Possible hemangioma in right lobe of liver incompletely evaluated due to timing of contrast. 2. Prominence of right renal pelvis to the level of UPJ. Finding may represent mild chronic UPJ stenosis versus extra renal pelvis unchanged from 2018 study. No obstructing stone is seen. No left-sided hydronephrosis or hydroureter. 3. No bowel obstruction or abnormal bowel wall thickening. No free fluid or free air. Dictated by: Fran Leger M.D. on 08/29/2024 at 17:04 Approved by: Fran Leger M.D. on 08/29/2024 at 17:13
== END ==
PROVIDERS: Family Provider Family Medicine; PCP Family Medicine; Referring Provider Family Medicine; Visit Provider Family Medicine
DX: K76.0 Fatty (change of) liver, not elsewhere classified (principal); K57.30 Diverticulosis of large intestine without perforation or abscess without bleeding; R10.11 Right upper quadrant pain
CPT/HCPCS: 74177; Q9967

== ENCOUNTER → 2024-08-31 06:49 | Outpatient (CLI) | payer MEDICARE, SELFPAY ==
[2024-03-31 09:54] VITALS: BMI 28.3
[2024-08-31 07:59] LABS: Cholesterol 218 mg/dL (140-199); HDL Cholesterol 38 mg/dL (40-60); LDL Cholesterol Calculated 153 mg/dL (<100); Triglycerides 134 mg/dL (35-150)
== END ==
PROVIDERS: Family Provider Family Medicine; PCP Family Medicine; Referring Provider Family Medicine; Visit Provider Family Medicine
DX: E78.5 Hyperlipidemia, unspecified (principal)
CPT/HCPCS: 36415; 80061

== ENCOUNTER → 2024-09-23 16:58 | Outpatient (CLI) | payer MEDICARE, SELFPAY ==
[2024-03-31 09:54] VITALS: BMI 28.3
--- NOTE | 2024-09-23 | DI.RAD.S_ITS ---
PROCEDURE: XR LUMBAR SPINE 2-3V INDICATIONS: BACK PAIN TECHNIQUE: 3 views of the lumbar spine were acquired. COMPARISON: None. FINDINGS: Bones: 5 [id number]-[id number] vertebrae are present. Grade 1 anterolisthesis of L4 on L5. Grade 1 retrolisthesis T12 on L1 and L1 on L2. Mild scoliotic curvature of the lumbar spine. No vertebral body compression fractures. No suspicious bony lesions. Multilevel disc space narrowing and degenerative endplate changes. Multilevel facet hypertrophy. Soft tissues: Overlying bowel gas pattern is normal. No suspicious soft tissue calcifications. IMPRESSION: Etor-gj-ccnggxmk multilevel lumbar spondylosis and degenerative spondylolisthesis. Mild scoliotic curvature. Approved by: Luisito Pantoja M.D. on 09/24/2024 at 11:01
--- NOTE | 2024-09-23 | DI.RAD.S_ITS ---
PROCEDURE: XR CERVICAL SPINE 2V OR 3V INDICATIONS: BACK PAIN TECHNIQUE: Three views of the cervical spine were acquired. COMPARISON: None. FINDINGS: Bones: No acute fractures or dislocations to the T1 level. Straightening of the normal cervical lordosis. The lateral masses of C1 appear intact on the odontoid view. No suspicious bony lesions. Multilevel disc space narrowing and degenerative endplate changes. Multilevel uncovertebral joint and facet hypertrophy. Soft tissues: No prevertebral soft tissue swelling. IMPRESSION: Moderate multilevel cervical spondylosis. No acute osseous abnormality. Approved by: Luisito Pantoja M.D. on 09/24/2024 at 10:57
--- NOTE | 2024-09-23 | DI.RAD.S_ITS ---
PROCEDURE: XR THORACIC SPINE 2V INDICATIONS: BACK PAIN TECHNIQUE: 3 views of the thoracic spine were acquired. COMPARISON: None. FINDINGS: Bones: No acute fractures or dislocations. No suspicious bony lesions. 12 pairs of ribs are noted, and appear intact where visualized. Mild S-shaped scoliotic curvature. Multilevel degenerative endplate changes are present. Soft tissues: No paravertebral stripe thickening. Hiatal hernia. IMPRESSION: Khft-jk-eehbxjag multilevel thoracic spondylosis and mild scoliotic curvature. Approved by: Luisito Pantoja M.D. on 09/24/2024 at 11:02
== END ==
PROVIDERS: PCP Family Medicine; Referring Provider Chiropractor; Visit Provider Chiropractor
DX: M47.812 Spondylosis without myelopathy or radiculopathy, cervical region (principal); M47.814 Spondylosis without myelopathy or radiculopathy, thoracic region; M47.816 Spondylosis without myelopathy or radiculopathy, lumbar region; M43.13 Spondylolisthesis, cervicothoracic region; M41.9 Scoliosis, unspecified; M54.50 Low back pain, unspecified; K44.9 Diaphragmatic hernia without obstruction or gangrene
CPT/HCPCS: 72040; 72070; 72100

== ENCOUNTER → 2025-01-14 08:04 | Outpatient (CLI) | payer MEDICARE, SELFPAY ==
[2024-03-31 09:54] VITALS: BMI 28.3
[2025-01-14 09:30] LABS: Cholesterol 202 mg/dL (140-199); HDL Cholesterol 44 mg/dL (40-60); Triglycerides 202 mg/dL (35-150)
== END ==
PROVIDERS: PCP Family Medicine; Referring Provider Family Medicine; Visit Provider Family Medicine
DX: K76.0 Fatty (change of) liver, not elsewhere classified (principal); E78.2 Mixed hyperlipidemia
CPT/HCPCS: 36415; 80061

== ENCOUNTER 2025-03-05 08:57 | Emergency (ER) | payer MEDICARE, SELFPAY ==
[2024-03-31 09:54] VITALS: BMI 28.3
[2025-03-05 09:06] VITALS: BP 193/95; PULSE 74; RESP 18; TEMP 36.6; O2SAT 95; BMI 29.0
--- NOTE | 2025-03-05 09:43 | EKG_ITS ---
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
--- NOTE | 2025-03-17 09:53 | ED_ITS ---
HPI - General Adult General Chief complaint: Hypertension Stated complaint: High blood pressure , no BP Meds Time Seen by Provider: 03/05/25 09:01 Source: patient Mode of arrival: Ambulatory History of Present Illness HPI narrative: 69-year-old female with history of hypertension and anxiety, not on meds presents with a 1 reading of an elevated blood pressure at home. Denies fevers, chills, nausea, vomiting, diarrhea, abdominal pain, chest pain, shortness of breath, dizziness, headache, or urinary symptoms. Related Data Home Medications ?Medication ?Instructions ?Recorded ?Confirmed omeprazole magnesium 20 mg 20 mg PO QDAY ##0 06/28/17 01/27/25 tablet,delayed release (Prilosec OTC) ibuprofen 200 mg tablet (Advil) 200 mg PO Q6H PRN Pain (Scale 02/06/19 01/27/25 Score 1-3) gpwyjwy-fzxncahajtkhk-irzxlczm 250 1.5 tab PO Q4-6H NC N Pain (Scale 10/30/19 01/27/25 mg-250 mg-65 mg tablet (Excedrin Score 1-3) Migraine) Previous Rx's ?Medication ?Instructions ?Recorded estradiol 0.01% (0.1 mg/gram) 0.5 g vaginal 2XW #42.5 grams 09/23/23 vaginal cream Allergies Allergy/AdvReac Type Severity Reaction Status Date / Time Penicillins (PENICILLINS) Allergy Mild ITCHY Verified 03/05/25 09:06 sulfamethoxazole (From Allergy Mild itchy all Verified 03/05/25 09:06 Bactrim) over under skin trimethoprim (From Bactrim) Allergy Mild itchy all Verified 03/05/25 09:06 over under skin meperidine (MEPERIDINE) Allergy Unknown VOMITING, Verified 03/05/25 09:06 Diarrhea codeine (CODEINE) AdvReac Unknown Nausea Verified 03/05/25 09:06 Review of Systems Review of Systems ROS Unobtainable: All systems reviewed & are unremarkable except as noted in HPI and below Patient History Medical History (Updated 03/05/25 @ 14:31 by Christ Brown MD) Left arm pain Fatty liver Hepatic cyst Microcytic anemia Witnessed episode of apnea Elevated blood pressure reading without diagnosis of hypertension Excessive daytime sleepiness Caregiver stress Sebaceous cyst Internal hemorrhoid, bleeding Ache in joint Seborrheic keratosis Intermittent right upper quadrant abdominal pain GERD (gastroesophageal reflux disease) Paresthesia of bilateral legs Vaginal irritation Elevated fasting blood sugar Hyperlipidemia Grief reaction Anxiety Headache, migraine Hypoglycemia Sinus drainage HTN (hypertension) Intermittent paresthesia of hand and foot Lipoma of back Lipoma of axilla Encounter for screening for cervical cancer Family history of breast cancer in female Segmental and somatic dysfunction of abdomen and other regions Segmental and somatic dysfunction of rib cage Rib pain on right side RLQ abdominal pain Somatic dysfunction of sacroiliac region Somatic dysfunction of left lower extremity Segmental and somatic dysfunction of pelvic region IT band syndrome Hip pain, bilateral History of herpes genitalis Itch of eye, right Lump of skin of back Eczema Cranial somatic dysfunction Cervical somatic dysfunction Somatic dysfunction of abdominal region Low back pain Cervicalgia Right-sided abdominal pain of unknown cause Gastroesophageal reflux disease Surgical History (Updated 07/01/23 @ 16:26 by Laura Forbes MD) History of surgery (04/13/20) Hx of appendectomy (1959) Hx of tonsillectomy (1959) H/O colonoscopy History of esophagogastroduodenoscopy (EGD) (01/22/07) History of bilateral salpingo-oophorectomy (BSO) Status post endometrial ablation Family History Child Brain tumor Father Bleeding ulcer Cancer Mother Depression Breast cancer Social History household members: friend(s) alcohol intake: current Smoking Status: Never smoker alcohol intake frequency: holidays/special occasions only Exam Narrative Exam Narrative: Patient slightly anxious otherwise unremarkable physical exam Initial Vital Signs Initial Vital Signs: Vital Signs Temperature 98 F 03/05/25 09:06 Pulse Rate 74 03/05/25 09:06 Respiratory Rate 18 03/05/25 09:06 Blood Pressure 193/95 H 03/05/25 09:06 Pulse Oximetry 95 03/05/25 09:06 Oxygen Delivery Method Room Air 03/05/25 09:06 Const General: cooperative, healthy appearing, comfortable, well developed and well hydrated Nutritional Appearance: average body habitus [facility] Head: normal to inspection Ears: external ears normal Nose: external nose normal and nares normal Face and sinus: sinuses nontender, face symmetric, ecchymosis not on the right, not on the left and not bilaterally, erythema not on the right, not on the left and not bilaterally and edema not on the right, not on the left and not bilaterally Mouth: lip normal Eyes General: Yes appearance normal, both eyes and all related structures Eyelids: eyelids normal Sclera: sclerae normal Pupils: PERRL Neck Neck: normal visual inspection Resp Effort & Inspection: normal respiratory effort and able to speak in complete sentences Cardio Rate: regular rate Rhythm: regular rhythm Pulses: radial pulses present GI Inspection: normal to inspection and non-distended General: bimanual renal exam normal bilaterally Back/Spine/Pelvis Back: normal to inspection Skin General: no rashes or lesions noted Neuro General: patient alert, patient awake, patient oriented x3, gait normal, moves all extremities, normal light touch, pain and propioception, no focal motor deficits and CN's II-XI intact bilaterally Cognition: normal cognition Speech: speech normal Gait: normal gait Motor: muscle tone normal throughout Sensory Exam: no sensory deficits noted Extrem General: normal to inspection Psych Appearance: grossly normal Mental Status: mental status grossly normal Speech and Movement: speech and movement normal Mood: congruent mood Attitude: cooperative Thought Process: normal Thought Content: normal Judgment: judgment good Course Orders Ordered: Discontinued Medications Lorazepam (Lorazepam 0.5 Mg Tablet) 0.25 mg PO NOW ONE Stop: 03/05/25 09:35 Last Admin: 03/05/25 09:55 Dose: Not Given Documented By: RB Medical Decision Making MDM Narrative Medical decision making narrative: Pt presents w/ Chest Pain. Chest x-ray considered for pneumonia, pneumothorax, or congestive heart failure, however deferred due to reassuring hx and physical. Troponin in consideration of arrhythmia, Acute Coronary Syndrome, Acute Myocardial Infarction, however deferred due to reassuring hx and physical. EKG obtained and unremarkable for any signs of ischemia Check labs due to consideration of anemia, electrolyte abnormalities including hypokalemia, hyperkalemia, hyponatremia, hypernatremia, hyperglycemia, hypoglycemia, however deferred due to reassuring hx and physical. No CT chest indicated as I considered but do not clinically suspect aortic dissection/pulmonary embolus. Re-eval. Discharge Plan Departure Patient Disposition: Elopement Clinical Impression: Hypertension, Anxiety Prescriptions: No Action omeprazole magnesium [Prilosec OTC] 20 MG tablet,delayed release (DR/EC) 20 mg PO QDAY Qty: 0 estradiol 0.01 % (0.1 mg/gram) cream 0.5 g vaginal 2XW Qty: 42.5 3RF ibuprofen [Advil] 200 mg tablet 200 mg PO Q6H PRN (Reason: Pain (Scale Score 1-3)) Excedrin Migraine 250-250-65 mg Tablet 1.5 tab PO Q4-6H PRN (Reason: Pain (Scale Score 1-3)) Referrals: Abdi Dyer DO [Primary Care Provider, Family Practice]
== END 2025-03-05 10:10 | disposition left against medical advice (07) ==
PROVIDERS: Emergency Provider Emergency Medicine; PCP Family Medicine
DX: I10 Essential (primary) hypertension (principal); F41.9 Anxiety disorder, unspecified
CPT/HCPCS: 93005; 99281; 99283

== ENCOUNTER → 2025-03-18 08:34 | Outpatient (CLI) | payer MEDICARE, SELFPAY ==
[2024-03-31 09:54] VITALS: BMI 28.3
--- NOTE | 2025-03-18 08:35 | DI.US.S_ITS ---
PROCEDURE: US ABDOMEN LIMITED INDICATIONS: Right upper quadrant pain, gallbladder?,liver? TECHNIQUE: Real-time scanning was performed of the abdominal and retroperitoneal organs, with image documentation. COMPARISON: [facility], MR, MR ABDOMEN WITH/WITHOUT CONTRAST, 01/29/2025, 7:17. [facility], US, US ABDOMEN LIMITED, 03/06/2023, 16:54. FINDINGS: Liver: Diffuse increased hepatic echogenicity, with a a redemonstrated, thinly septated, cyst in segment 8/4B. This cyst measures up to 9.1 cm in dimension, unchanged from comparison MRI. Gallbladder: No gallstones. No wall thickening. No pericholecystic edema. Positive sonographic Reynolds's sign. Biliary ducts: Intrahepatic bile ducts are non-dilated. Extrahepatic bile duct caliber measures 5 mm. Normal is 6-7 mm or less in diameter, or 10 mm or less post-cholecystectomy. Pancreas: Not well seen secondary to bowel gas shadowing. Right kidney: Measures up to 11.6 cm in dimension. No visualized nephrolithiasis or hydronephrosis. Miscellaneous: No free abdominal fluid. IMPRESSION: Positive sonographic Reynolds's sign without cholelithiasis, gallbladder distension or gallbladder wall thickening to suggestsonographic acute cholecystitis., correlate for chronic biliary dysfunction. If indicated, this could be further evaluated with HIDA exam including ejection fraction. Dictated by: Monty Morrell M.D. on 03/18/2025 at 13:01 Approved by: Monty Morrell M.D. on 03/18/2025 at 13:06
== END ==
LOC: US 08:35
PROVIDERS: PCP Family Medicine; Referring Provider Family Medicine; Visit Provider Family Medicine
DX: K76.89 Other specified diseases of liver (principal); R10.11 Right upper quadrant pain; K76.0 Fatty (change of) liver, not elsewhere classified
CPT/HCPCS: 76705